=== PATIENT | female | born 1970 | race Caucasian/White ===

== ENCOUNTER 2022-09-14 12:00 | Outpatient (OUT) | payer MEDICAID, SELFPAY ==
[2022-09-14 13:18] LABS: Creatinine Urine Random 31.81 mg/dL (20.00-300.00); Microalbum Creatinine Ratio Ur 40.8 mg/g (0.0-29.9); Microalbumin Urine Random <1.3 mg/dL (<=30.0)
[2022-09-14 13:41] LABS: Albumin Level 4.1 g/dL (3.4-5.0); Anion Gap 12.1; BUN Creatinine Ratio 30.4; Calcium 9.2 mg/dL (8.5-10.1); Chloride 99 mmol/L (98-107); Chol HDL Ratio 2.5; Cholesterol 294 mg/dL (<=200); Estimated GFR (African America >60 (>=60); Estimated GFR (Non-African Ame >60 (>=60); Glucose 251 mg/dL (74-106); HDL Cholesterol 116 mg/dL (40-60); Phosphorus 3.4 mg/dL (2.6-4.7); Potassium 4.1 mmol/L (3.5-5.1); Sodium 137 mmol/L (136-145); Triglycerides 118 mg/dL (<=150); VLDL CHOLESTEROL 23.6 mg/dL
[2022-09-15 12:20] LABS: C-Peptide, Serum <0.1 ng/mL (1.1-4.4)
== END 2022-09-14 12:01 | disposition home or self-care (01) ==
LOC: LAB 12:01
PROVIDERS: PCP Nurse Practitioner Primary Care; Visit Provider Internal Medicine
DX: E10.9 Type 1 diabetes mellitus without complications (principal); Z79.4 Long term (current) use of insulin; E55.9 Vitamin D deficiency, unspecified
CPT/HCPCS: 36415; 80061; 80069; 82043; 82306; 82570; 84681

== ENCOUNTER 2022-09-14 12:10 | Outpatient (OUT) | payer MEDICAID, SELFPAY ==
[2022-09-14 12:27] LABS: Basophils Percent Auto 0.6 % (0.2-2.0); Eosinophils Absolute Auto 0.1 10^3/uL (0.0-0.7); Eosinophils Percent Auto 0.7 % (0.9-7.0); Hematocrit 43.2 % (36.0-48.0); Hemoglobin 14.6 g/dL (12.0-16.0); Immature Granulocytes Abs Auto 0.02 10^3/uL (0.00-0.03); Immature Granulocytes Pct Auto 0.3 % (0.0-0.5); Lymphocytes Absolute Auto 2.6 10^3/uL (1.2-3.8); Mean Corpuscular HGB Conc 33.8 g/dL (29.9-35.2); Mean Corpuscular Hemoglobin 33.5 pg (26.7-34.0); Mean Corpuscular Volume 99.1 fL (81.0-99.0); Mean Platelet Volume 9.6 fL (9.5-13.5); Monocytes Absolute Auto 0.5 10^3/uL (0.3-0.8); Monocytes Percent Auto 7.4 % (1.7-12.0); Neutrophils Absolute Auto 3.7 10^3/uL (1.4-6.5); Platelet Count 272 10^3/uL (150-450); Red Blood Count 4.36 10^6/uL (4.20-5.40); Red Cell Distribution Width 11.7 % (11.0-15.0); White Blood Count 6.9 10^3/uL (4.0-11.0)
[2022-09-14 12:51] LABS: HCG Qualitative Urine* NEGATIVE (NEGATIVE)
[2022-09-14 12:59] LABS: Amphetamine Screen Urine NEGATIVE (NEGATIVE); Barbiturates Screen Urine NEGATIVE (NEGATIVE); Benzodiazepines Screen Urine NEGATIVE (NEGATIVE); Buprenorphine Screen Urine NEGATIVE (NEGATIVE); Cannabinoid Screen Urine POSITIVE (NEGATIVE); Cocaine Screen Urine NEGATIVE (NEGATIVE); Methadone Screen Urine NEGATIVE (NEGATIVE); Methamphetamines Screen Urine NEGATIVE (NEGATIVE); Opiate Screen Urine NEGATIVE (NEGATIVE); Oxycodone Screen Urine NEGATIVE (NEGATIVE); Phencyclidine Screen Urine NEGATIVE (NEGATIVE); Tricyclic Antidepressant Urine NEGATIVE (NEGATIVE)
[2022-09-14 14:18] LABS: Alanine Aminotransferase 26 U/L (14-59); Albumin Globulin Ratio 1.2; Albumin Level 4.2 g/dL (3.4-5.0); Alkaline Phosphatase 168 U/L (46-116); Anion Gap 9.9; Aspartate Amino Transferase 8 U/L (15-37); BUN Creatinine Ratio 28.1; Bilirubin Total 0.3 mg/dL (0.2-1.0); Calcium 8.9 mg/dL (8.5-10.1); Carbon Dioxide 30.2 mmol/L (21.0-32.0); Chloride 99 mmol/L (98-107); Estimated GFR (African America >60 (>=60); Estimated GFR (Non-African Ame >60 (>=60); Globulin 3.4 g/dL; Glucose 261 mg/dL (74-106); Potassium 4.1 mmol/L (3.5-5.1); Sodium 135 mmol/L (136-145); Total Protein 7.6 g/dL (6.4-8.2)
== END 2022-09-14 12:11 | disposition home or self-care (01) ==
LOC: LAB 12:10
PROVIDERS: PCP Nurse Practitioner Primary Care; Visit Provider Nurse Practitioner Primary Care
DX: E10.9 Type 1 diabetes mellitus without complications (principal); Z79.4 Long term (current) use of insulin; E55.9 Vitamin D deficiency, unspecified; F10.10 Alcohol abuse, uncomplicated
CPT/HCPCS: 36415; 80053; 80061; 80069; 80307; 82043; 82306; 82570; 84681; 84703; 85025

== ENCOUNTER 2022-10-16 11:45 | Outpatient (OUT) | payer MEDICAID, SELFPAY ==
[2022-10-16 12:40] LABS: HCG Qualitative Urine* NEGATIVE (NEGATIVE)
== END 2022-10-16 11:46 | disposition home or self-care (01) ==
LOC: LAB 11:49
PROVIDERS: PCP Nurse Practitioner Primary Care; Visit Provider Physician Assistant
DX: F10.10 Alcohol abuse, uncomplicated (principal)
CPT/HCPCS: 84703

== ENCOUNTER 2022-12-08 15:10 | Outpatient (REF) | payer MEDICAID, SELFPAY ==
[2022-12-09 12:09] LABS: Candida species Negative (Negative); Gardnerella vaginalis Positive (Negative); Trichomonas vaginalis Negative (Negative)
[2022-12-10 05:07] LABS: Neisseria gonorrhoeae, NAA Negative (Negative)
[2022-12-10 12:09] LABS: Pap IG (Image Guided) Note (.)
== END 2022-12-08 15:11 | disposition home or self-care (01) ==
LOC: LAB 15:10
PROVIDERS: PCP Nurse Practitioner Primary Care; Visit Provider Nurse Practitioner Primary Care
DX: Z12.4 Encounter for screening for malignant neoplasm of cervix (principal)
CPT/HCPCS: 87491; 87591

== ENCOUNTER 2022-12-25 10:14 | Outpatient (OUT) | payer MEDICAID, SELFPAY ==
--- NOTE | 2022-12-25 10:19 | CT_ITS ---
The [address] [address] Patient Name: KERLINE SANDERS MRN: [id number] date: 1970 Sex: F Assigned Patient Location: CT Current Patient Location: Accession/Order Number: [id number] Exam Date: 12/25/2022 10:23 Report Date: 12/28/2022 07:45 At the request of: CEE BRITTON Procedure: CT lung screening low-dose EXAMINATION: CT lung screening low-dose HISTORY: Nicotine Dependence F17.210 COMPARISON: No relevant comparison available. TECHNIQUE: Axial, Coronal, and Sagittal images were created without the administration of IV contrast material. Dose reduction techniques were achieved by using automated exposure control and/or adjustment of mA and/or kV according to patient size and/or use of iterative reconstruction technique. FINDINGS: LUNGS: A few scattered punctate pulmonary nodules, nonspecific. No significant pulmonary nodule or mass. PLEURA: No mass, effusion, or pneumothorax. VASCULATURE: No abnormality. CADY: No mass or pathologic adenopathy. MEDIASTINUM: No mass or pathologic adenopathy. CARDIAC: No enlargement, pericardial thickening, or significant calcification. AORTA: No aneurysm or dissection. CHEST WALL: No mass or axillary adenopathy BONES: No bone lesion or fracture. 40% anterior wedge compression fracture of L1 likely chronic LIMITED ABDOMEN: Surgical clips from cholecystectomy OTHER: Negative. CT/CT lung screening low-dose IMPRESSION: LUNG SCREENING: Lung-RADS Category 2- Benign Appearance or Behavior. Nodules with a very low likelihood of becoming a clinically active cancer due to size or lack of growth. 2. Continue annual screening with LDCT in 12 months. Electronically authenticated by: ANNA MARIE INGRAM Date: 12/28/2022 07:45
--- NOTE | 2022-12-25 10:20 | MM_ITS ---
Patient: KERLINE SANDERS Exam Date: 12/25/2022 : 1970 Gender:F Ordering : CEE BRITTON Admission #: [id number] Family : Order #: [id number] CLICK HERE TO VIEW EXAM RADIOLOGY REPORT PROCEDURE: MM TOMOSYNTHESIS SCREENING BI COMPARISON: None. INDICATIONS: Screening Calculator Name NCI Breast Cancer Risk Assessment Tool 5 Year Breast Cancer Risk 1.20% Lifetime Breast Cancer Risk 10.80% Personal Breast Cancer No Personal Ovarian Cancer No Treatments None Family Cancers Grandmother-maternal with breast cancer at age 71. LOCATION: [facility] BREAST COMPOSITION: Scattered areas fibroglandular density. FINDINGS: DIAGNOSTIC CATEGORY 0--INCOMPLETE: NEED ADDITIONAL IMAGING EVALUATION. Scattered benign-appearing lymph nodes are present. RIGHT BREAST: 3 focal well-circumscribed nodules adjacent to each other in the upper-outer quadrant of the right mid breast measuring 4-5 mm in size best visualized on tomographic images, spot compression and ultrasound follow-up is recommended. LEFT BREAST: No significant suspicious finding. RECOMMENDATIONS: ADDITIONAL MAMMOGRAPHIC VIEWS REQUIRED: RIGHT BREAST - spot compression views ULTRASOUND: RIGHT BREAST PLEASE NOTE: A NORMAL MAMMOGRAM DOES NOT EXCLUDE THE POSSIBILITY OF BREAST CANCER. A CLINICALLY SUSPICIOUS PALPABLE LUMP SHOULD BE BIOPSIED. Dictated by: Skyler Petty MD on 12/28/2022 at 08:50 Approved by: Skyler Petty MD on 12/28/2022 at 08:53
== END 2022-12-25 10:15 | disposition home or self-care (01) ==
LOC: CT 10:14
PROVIDERS: PCP Nurse Practitioner Primary Care; Visit Provider Nurse Practitioner Primary Care
DX: Z12.31 Encounter for screening mammogram for malignant neoplasm of breast (principal); F17.210 Nicotine dependence, cigarettes, uncomplicated; F10.10 Alcohol abuse, uncomplicated; Z80.3 Family history of malignant neoplasm of breast; N63.11 Unspecified lump in the right breast, upper outer quadrant
CPT/HCPCS: 71271; 77063; 77067

== ENCOUNTER 2022-12-29 09:43 | Outpatient (OUT) | payer MEDICAID, SELFPAY ==
[2022-12-29 09:56] LABS: Basophils Absolute Auto 0.1 10^3/uL (0.0-0.1); Basophils Percent Auto 0.9 % (0.2-2.0); Eosinophils Absolute Auto 0.1 10^3/uL (0.0-0.7); Eosinophils Percent Auto 1.6 % (0.9-7.0); Hematocrit 41.4 % (36.0-48.0); Hemoglobin 13.8 g/dL (12.0-16.0); Immature Granulocytes Abs Auto 0.01 10^3/uL (0.00-0.03); Immature Granulocytes Pct Auto 0.2 % (0.0-0.5); Lymphocytes Absolute Auto 3.2 10^3/uL (1.2-3.8); Lymphocytes Percent Auto 55.9 % (20.5-60.0); Mean Corpuscular HGB Conc 33.3 g/dL (29.9-35.2); Mean Corpuscular Hemoglobin 33.6 pg (26.7-34.0); Mean Corpuscular Volume 100.7 fL (81.0-99.0); Mean Platelet Volume 10.1 fL (9.5-13.5); Monocytes Absolute Auto 0.5 10^3/uL (0.3-0.8); Neutrophils Absolute Auto 1.9 10^3/uL (1.4-6.5); Neutrophils Percent Auto 33.4 % (43.0-75.0); Platelet Count 243 10^3/uL (150-450); Red Blood Count 4.11 10^6/uL (4.20-5.40); Red Cell Distribution Width 11.6 % (11.0-15.0); White Blood Count 5.6 10^3/uL (4.0-11.0)
[2022-12-29 10:15] LABS: Estimated Average Glucose 174 mg/dL; Glycohemoglobin A1C 7.7 % (4.5-6.2)
[2022-12-29 15:05] LABS: Alanine Aminotransferase 32 U/L (14-59); Albumin Globulin Ratio 1.2; Albumin Level 3.5 g/dL (3.4-5.0); Alkaline Phosphatase 98 U/L (46-116); Anion Gap 12.7; Aspartate Amino Transferase 21 U/L (15-37); BUN Creatinine Ratio 20.3; Bilirubin Total 0.3 mg/dL (0.2-1.0); Calcium 8.7 mg/dL (8.5-10.1); Carbon Dioxide 28.8 mmol/L (21.0-32.0); Chloride 103 mmol/L (98-107); Chol HDL Ratio 2.5; Cholesterol 200 mg/dL (<=200); Estimated GFR (African America >60 (>=60); Estimated GFR (Non-African Ame >60 (>=60); Globulin 2.9 g/dL; Glucose 199 mg/dL (74-106); HDL Cholesterol 79 mg/dL (40-60); Potassium 4.5 mmol/L (3.5-5.1); Sodium 140 mmol/L (136-145); Total Protein 6.4 g/dL (6.4-8.2); Triglycerides 106 mg/dL (<=150); VLDL CHOLESTEROL 21.2 mg/dL
[2022-12-29 16:44] LABS: TSH W/ REFLEX FT4 3.312
[2022-12-30 06:11] LABS: HCV Ab Non Reactive (Non Reactive)
== END 2022-12-29 09:44 | disposition home or self-care (01) ==
LOC: LAB 09:43
PROVIDERS: PCP Nurse Practitioner Primary Care; Visit Provider Nurse Practitioner Primary Care
DX: Z00.00 Encounter for general adult medical examination without abnormal findings (principal); Z11.59 Encounter for screening for other viral diseases; Z13.6 Encounter for screening for cardiovascular disorders; Z13.29 Encounter for screening for other suspected endocrine disorder
CPT/HCPCS: 36415; 80053; 80061; 83036; 85025; 86803

== ENCOUNTER 2022-12-30 13:21 | Outpatient (OUT) | payer MEDICAID, SELFPAY ==
--- NOTE | 2022-12-30 13:26 | MM_ITS ---
Patient Name KERLINE SANDERS MR# Age Sex Date Time [id number] 52 F 12/30/2022 13:27 At the Request Of CEE BRITTON RADIOLOGY REPORT PROCEDURE: MM DIAGNOSTIC MAMMO UNILAT RT, 12/30/2022, 13:27 US BREAST RT LIMITED, 12/30/2022, 13:52 COMPARISON: MM TOMOSYNTHESIS SCREENING BI, 12/25/2022. INDICATIONS: Abnormal Mammogram Of Right Breast R92.8 Calculator Name NCI Breast Cancer Risk Assessment Tool 5 Year Breast Cancer Risk 1.20% Lifetime Breast Cancer Risk 10.80% Personal Breast Cancer No Personal Ovarian Cancer No Treatments None Family Cancers Grandmother-maternal with breast cancer at age 71. LOCATION: [facility] BREAST COMPOSITION: Scattered areas fibroglandular density. FINDINGS: DIAGNOSTIC CATEGORY 2--BENIGN FINDING: RIGHT BREAST: Spot magnification views demonstrate adjacent partially circumscribed masses versus lymph nodes within upper-outer quadrant. Ultrasound evaluation demonstrates adjacent benign-appearing lymph nodes. Annual screening mammography is recommended. RECOMMENDATIONS: ROUTINE MAMMOGRAM AND CLINICAL EVALUATION IN 12 MONTHS. PLEASE NOTE: A NORMAL MAMMOGRAM DOES NOT EXCLUDE THE POSSIBILITY OF BREAST CANCER. A CLINICALLY SUSPICIOUS PALPABLE LUMP SHOULD BE BIOPSIED. Dictated by: Slim Saldaña M.D. on 12/30/2022 at 14:15 Approved by: Slim Saldaña M.D. on 12/30/2022 at 14:20
== END 2022-12-30 13:22 | disposition home or self-care (01) ==
LOC: MAMMO 13:21
PROVIDERS: PCP Nurse Practitioner Primary Care; Visit Provider Nurse Practitioner Primary Care
DX: R92.8 Other abnormal and inconclusive findings on diagnostic imaging of breast (principal); F10.10 Alcohol abuse, uncomplicated; Z80.3 Family history of malignant neoplasm of breast
CPT/HCPCS: 76642; 77065

== ENCOUNTER 2023-02-03 07:40 | Outpatient (OUT) | payer MEDICAID, SELFPAY | END 2023-02-03 07:41 | disposition home or self-care (01) | LOC: PST 07:40 | PROVIDERS: PCP Nurse Practitioner Primary Care; Visit Provider Surgery | DX: Z01.818 Encounter for other preprocedural examination (principal); Z12.11 Encounter for screening for malignant neoplasm of colon ==

== ENCOUNTER 2023-02-10 07:10 | Day surgery (SDC) | payer MEDICAID, SELFPAY ==
--- NOTE | 2023-02-10 | OP_ITS ---
OPERATION DATE: 02/10/2023 PREOPERATIVE DIAGNOSIS: Colorectal screening. POSTOPERATIVE DIAGNOSIS: Normal colonoscopy to cecum. PROCEDURE: Colonoscopy to cecum. SURGEON: Wei Reina M.D. ANESTHESIA: Monitored anesthesia care. ESTIMATED BLOOD LOSS: Zero. INDICATIONS AND CONSENT: Patient is a 52-year-old female presents for colorectal screening. Indications, risks, benefits, alternatives of proceeding with colonoscopy were explained extensively to the patient, including the risks of bleeding, colon perforation or anesthetic complications. All of her questions were answered. Informed consent was obtained. PROCEDURE: Patient brought to the operating room, placed in the left lateral decubitus position. Monitored anesthesia care was provided. Rectal exam was performed which shows no masses or blood. The scope was inserted into the anal canal. Under direct visualization was advanced. It was advanced to the cecum where cecal markings were clearly identified. There was noted to be a good prep. Upon withdrawal of the scope, mucosal surfaces were carefully examined. There were no mass lesions or polyps. No inflammatory changes or ulcerations. No significant diverticulosis. Scope was retroflexed in the anal canal. There was no significant hemorrhoidal disease. The scope was then withdrawn. Patient tolerated procedure well, was sent to recovery room in good condition.f/u screening in 10 years CC: JANET Rain
--- OUTSIDE RECORDS SUMMARY | 2023-02-10 07:17 | XMS_ITS | CCD ---
Author Name Unknown Address [address] [place] [address] Organization [facility] Care Team Providers Care Clinical Exercise Specialist Name Role Phone NONE, XXXX Primary Care Physician Unavailab Odilia Ryan Unavailable Odilia RUBIO Attending Unavailable Odilia RUBIO Admitting Unavailable Gregorio Dean Attending Unavailable SHAMMO, DOUGLAS Admitting Unavailable SHAMMO, DOUGLAS Attending Unavailable SHAMMO, DOUGLAS Primary Care Unavailable SHAMMO, DOUGLAS Consulting Unavailable RICHIE, AHMAD Admitting Unavailable RICHIE, AHMAD Attending Unavailable SHAMMO, DOUGLAS Primary Care Unavailable RICHIE, AHMAD Consulting Unavailable SHAMMO, DOUGLAS Admitting Unavailable SHAMMO, DOUGLAS Attending Unavailable SHAMMO, DOUGLAS Primary Care Unavailable PAY, DR MOELLER Admitting Unavailable PAY, DR MOELLER Attending Unavailable REQUEST, DR MENDOZA LISTED Primary Care Unavaila ble PAY, DR MOELLER Consulting Unavailable SYDNIE SHANNON Consulting Unavailable SHAMMO, DOUGLAS Primary Care Unavailable HAY, DR NARANJO Admitting Unavailable HAY, DR NARANJO Attending Unavailable KATIE, DR NARANJO Consulting Unavailable MARIA TERESA, DR TONEY Vinson Admitting Unavailsupa MOREL, DR TONEY Vinson Attending Unavailsupa VALDEZ, DR LATANYA Spaulding Consulting Unavailable JUVENCIO, DR MENDOZA LISTED Primary Care Unavaila ble MARIA TERESA, DR TONEY Vinson Consulting UnavailSYDNIE Urbano Consulting Unavailable MAGNOLIA DUMONT Consulting Unavailable SHAMMO, DOUGLAS DIAMOND Primary Care Physician DO Papito Carrera Attending Unavailable SHAMMO, DOUGLAS Primary Care Unavailable DO Papito Carrera Admitting Unavailable SHAMMO, DOUGLAS Primary Care Unavailable Wei RAMOS Attending Unavailable SHAMMO, DOUGLAS Primary Care Unavailable SHAMMO, DOUGLAS Referring Unavailable Allergies Allergy Classification Reported Allergen(s) Allergy Type Date of Onset Reaction(s) Facility (4 sources) Acetaminophen / HYDROcodone; Translations: [acetaminophen-hy drocodone] Drug Allergy Itching of skin (finding), Eruption of skin (disorder) [facility] (4 sources) Aspirin; Translations: [aspirin] Drug Allergy Unknown (qualifier value), Eruption of skin (disorder) [facility] (4 sources) Penicillin; Translations: [penicillin] Drug Allergy Eruption of skin (disorder) [facility] (1 source) Acetaminophen / HYDROcodone Drug Allergy 07-11-19 15 [facility] (1 source) Aspirin Drug Allergy 07-11-19 15 [facility] (1 source) Penicillins Drug allergy (disorder) 07-11-19 15 [facility] (2 sources) HMG-CoA reductase inhibitor; Translations: [statins] Drug intolerance Nausea and vomiting (disorder) [facility] Medications Current Medications Medication Drug Class(es) Dates Sig (Normalized) Sig (Original) acetaminophen 325 mg / oxyCODONE hydrochloride 5 mg oral tablet (1 source) Opioid Agonist Start: 11-07-2015 Percocet 325 mg-5 mg Tab See Instructions, as needed for pain, 40 tab(s), Refill(s) 0, 1-2 tab(s) Oral q4hr, [facility] WHITTL[facility]Y PETRAE Start Date: 11/07/15 Status: Ordered docusate sodium 100 mg oral capsule (1 source) Start: 11-07-2015 take 1 capsule by mouth twice daily as needed for constipation Colace 100 mg Cap 100 mg = 1 cap(s), Oral, BID, PRN for constipation, # 20 cap(s), Refills(s) 0, Pharmacy: [facility] ROS[facility] MARIA KAT Start Date: 11/07/15 Status: Ordered insulin aspart, human 100 unt/ml injectable solution (2 sources) Insulin Analog Start: 01-19-2023 NovoLOG 100 units/mL injectable solution as directed, Refills(s) 0 Start Date: 01/19/23 Status: Ordered Start: 02-27-2015 inject 1 [IU] by sub cutaneous injection once NovoLog SubCutaneous, TIDAC, 1 unit for every 15 carbs, Refills(s) 0, Blood glucose Start Date: 02/27/15 Status: Ordered insulin glargine 100 unt/ml injectable solution (2 sources) Insulin Analog Start: 01-19-2023 inject 12 [IU] by subcutaneous injection once daily Lantus 100 units/mL Injection-Insulin 12 unit(s), SubCutaneous, Daily, Refills(s) 0 Start Date: 01/19/23 Status: Ordered Start: 05-16-2011 inject 12 [IU] by scruggs bcutaneous injection once daily Lantus 12 unit(s), SubCutaneous, Daily, at noon, Blood glucose Start Date: 05/16/11 Status: Ordered Problems Active Problems Problem Classification Problem Date Documented Date Episodic/Chronic Alcohol-related disorders (1 source) Alcohol abuse 01-19-2023 Chronic Diabetes mellitus with complications (1 source) Type 1 diabetes mellitus with hyperglycemia; Translations: [TYPE 1 DM W/HYPERGLYCEMIA] Onset: 10-31-2021 Chronic Diabetes mellitus without complication (4 sources) Diabetes mellitus; Translations: [Type 1 diabetes mellitus without complications] Onset: 09-04-2021 10-24-2015 Chronic Disorders of lipid metabolism (1 source) Mixed hyperlipidemia 01-19-2023 Chronic Endometriosis (2 sources) Endometriosis of cervix; Translations: [Endometriosis (clinical)] 10-24-2015 Chronic Essential hypertension (1 source) Essential hypertension 01-19-2023 Chronic Immunizations and screening for infectious disease (1 source) Encounter for screening for other viral diseases; Translations: [ENC SCREENING FOR OTH VIRAL DZ] Onset: 12-04-2021 Episodic Inflammation; infection of eye (except that caused by tuberculosis or sexually transmitteddisease) (2 sources) Unspecified blepharitis right upper eyelid; Translations: [Unspecified conjunctivitis] Onset: 02-24-2022 Episodic Nutritional deficiencies (1 source) Vitamin D deficiency, unspecified; Translations: [VITAMIN D DEFICIENCY UNSPECIFIED] Onset: 12-04-2021 Chronic Other aftercare (1 source) 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; 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] Onset: 02-24-2022 Episodic Other aftercare (1 source) Other jail (current) drug therapy; Translations: [OTH GRAVURE PRESS SET UP OPERATOR CURRENT DRUG THERAPY] Onset: 02-24-2022 Episodic Other eye disorders (3 sources) Ocular pain, right eye; Translations: [OCULAR PAIN RIGHT EYE] Onset: 02-21-2022 Episodic Other screening for suspected conditions (not mental disorders or infectious disease) (2 sources) Encounter for screening for other suspected endocrine disorder; Translations: [Screening for malignant neoplasm of colon done] Onset: 12-04-2021 Episodic Substance-related disorders (3 sources) Smoker; Translations: [Nicotine dependence, cigarettes, uncomplicated] Onset: 10-31-2021 02-27-2015 Chronic Comment on above: Added secondary to d ocumentation in Social History. Outside Source Comme nt: Comment on above: Added secondary to documentation in Social History. Unclassified (1 source) Body mass index 20-24 - normal 01-27-2023 Unclassified (1 source) Patient encounter status 01-27-2023 Past or Other Problems Problem Classification Problem Date Documented Da te Episodic/Chronic Abdominal pain (4 sources) Unspecified abdominal pain; Translations: [UNSPECIFIED ABDOMINAL PAIN] Onset: 09-04-2021 Episodic Fever of unknown origin (1 source) Fever, unspecified; Translations: [FEVER UNSPECIFIED] Onset: 10-31-2021 Episodic Residual codes; unclassified (1 source) Acquired absence of both cervix and uterus; Translations: [ACQUIRED ABSENCE BOTH CERVIX AND UTERUS] Onset: 10-31-2021 Episodic Urinary tract infections (2 sources) Cystitis, unspecified without hematuria; Translations: [Tubulo-interstitia l nephritis, not specified as acute or chronic] Onset: 09-04-2021 Episodic Results Test Name Value Interpretation Reference Range Facil ity Consent for Procedure/Surger yon 01-29-2023 Consent for Procedure/Surgery [id number]#1.00TIFF [facility] Facesheeton 01-28-2023 Facesheet [id number]#1.00TI FF [facility] Ambulatory Visit Summaryon 1 03-30-2022 Ambulatory Visit Summary KERLINE SANDERS :1970 Visit Date:01/27/2023 Ambulatory Visit Instructions Your Diagnosis Screening for malignant neoplasm of colon Your Care Team Attending Physician - RICHARD BUCKLEY, Wei Spaulding Primary Care Physician - DOUGLAS BRITTON CNP Referring Physician - DOUGLAS BRITTON CNP This Is Your Medications List Contact prescribing physician if questions or concerns insulin aspart (NovoLOG 100 units/mL injectable solution) insulin glargine (Lantus 100 units/mL Injection-Insulin) Procedures Performed Colonoscopy (2006), Abdominal hysterectomy, Carpal tunnel release, section, Cholecystectomy, Colonoscopy, Colonoscopy, Laparoscopy. Discharge Vitals Heart Rate (Peripheral) 70 Respiratory Rate 16 Blood Pressure 116/70 Height 162.5 cm Height 64 in Weight 55.6 kg Weight 122.32 lb BMI 21.06 Medications What How Much When Instructions Unchanged insulin aspart (NovoLOG 100 units/ mL injectable solution) as directed Contact prescribing physician if questions or concerns Unchanged insulin glargine (Lantus 100 units/ mL Injection-Insulin) 12 Units Subcutaneous Every day Contact prescribing physician if questions or concerns Medications and Immunizations Administered Not Given influenza virus vaccine, inactivated, Patient Refuses influenza virus vaccine, inactivated, Patient Refuses Allergies Vicodin (Rash) aspirin (Rash) penicillin (Rash) statins (Nausea and vomiting) Problems Ongoing - Any problem that you are currently receiving treatment for. Alcohol abuse BMI 21.0-21.9, adult Diabetes mellitus Endometriosis Essential hypertension Mixed hyperlipidemia Screening for malignant neoplasm of colon Smoker Patient Survey You may receive a survey via text or e-mail asking about your office visit. Please share your experience with us by completing your survey. We appreciate your feedback and thank you for choosing us for your care. Normal [facility] Insurance Correspondenceon 1 03-30-2022 Insurance Correspondence [id number] Normal [facility] Physician Orderon 01-05-2023 Physician Order [id number] Normal [facility] Physician Referralon 023 Physician Referral [id number] [facility] C-PEPTIDE, SERUMon 2 C-Peptide, Serum <0.1 Critically low 1.1-4.4 [facility] Comment on above: Result Comment: C-Pe ptide reference interval is for fasting patients. Performed By: #### E RUSSELL FINNRO #### [facility] [address] [place] [address] Dr. Dariana Hall HEPATITIS C AB CASCADE TO QU ANT PCR GENOon 12-03-2021 HCV AB <0.1 Normal 0.0-0.9 [facility] Comment on above: Performed By: #### H EPCASC #### [facility] [address] [place] [address] Dr. Dariana Hall Interpretation: Comment Normal [facility] Comment on above: Result Comment: Nega tive Not infected with HCV, unless recent infection is suspected or other evidence exists to indicate HCV infection. Performed By: #### H EPCASC #### [facility] [address] [place] [address] Dr. Dariana Hall CBC AUTO DIFFon 12-02-2021 BASO # 0.0 103/ul Normal 0.0-0.1 [facility] Comment on above: Performed By: #### C BC #### [facility] [address] [place] [address] Dr. Dariana Hall Basophils/100 WBC (Bld) 0.4 % Normal 0.2-2.0 [facility] Comment on above: Performed By: #### C BC #### [facility] [address] [place] [address] Dr. Dariana Hall EO # 0.1 103/ul Normal 0.0-0.7 [facility] Comment on above: Performed By: #### C BC #### [facility] [address] [place] [address] Dr. Dariana Hall Eosinophils/100 WBC (Bld) 1.0 % Normal 0.9-7.0 [facility] Comment on above: Performed By: #### C BC #### [facility] [address] [place] [address] Dr. Dariana Hall Erythrocyte distribution wid th (RBC) [Ratio] 12.6 % Normal 11.0-15.0 [facility] Comment on above: Performed By: #### C BC #### [facility] [address] [address] [address] Dariana Hall Hematocrit (Bld) [Volume fraction] 39.8 % Normal 3 6.0-48.0 [facility] Comment on above: Performed By: #### C BC #### [facility] [address] [address] [address] Dariana Hall Hemoglobin (Bld) [Mass/Vol] 13.0 g/dL Normal 12.0-16. 0 [facility] Comment on above: Performed By: #### C BC #### [facility] [address] [place] [address] Dr. Dariana Hall IG # 0.02 10e3/ul Normal 0.00-0.03 [facility] Comment on above: Performed By: #### C BC #### [facility] [address] [place] [address] Dr. Dariana Hall IG % 0.3 % Normal 0.0-0.5 [facility] Comment on above: Performed By: #### C BC #### [facility] [address] [place] [address] Dr. Dariana Hall LYMPH # 2.8 103/ul Normal 1.2-3.8 [facility] Comment on above: Performed By: #### C BC #### [facility] [address] [place] [address] Dr. aDriana Hall Lymphocytes/100 WBC (Bld) 35.8 % Normal 20.5-60.0 [facility] Comment on above: Performed By: #### C BC #### [facility] [address] [place] [address] Dr. Dariana Hall MANUAL DIFF REQ NO Normal [facility] Comment on above: Performed By: #### C BC #### [facility] [address] [place] [address] Dr. Dariana Hall MCH (RBC) [Entitic mass] 32.7 pg Normal 26.7-34.0 [facility] Comment on above: Performed By: #### C BC #### [facility] [address] [place] [address] Dr. Dariana Hall MCHC (RBC) [Mass/Vol] 32.7 g/dL Normal 29.9-35.2 [facility] Comment on above: Performed By: #### C BC #### [facility] [address] [place] [address] Dr. Dariana Hall MCV (RBC) [Entitic vol] 100.3 fL Critically high 81.0-99 .0 [facility] Comment on above: Performed By: #### C BC #### [facility] [address] [place] [address] Dr. Dariana Hall MONO # 0.5 103/ul Normal 0.3-0.8 [facility] Comment on above: Performed By: #### C BC #### [facility] [address] [place] [address] Dr. Dariana Hall Monocytes/100 WBC (Bld) 6.0 % Normal 1.7-12.0 [facility] Comment on above: Performed By: #### C BC #### [facility] [address] [place] [address] Dr. Dariana Hall NEUT # 4.4 103/ul Normal 1.4-6.5 [facility] Comment on above: Performed By: #### C BC #### [facility] [address] [place] [address] Dr. Dariana Hall Neutrophils/100 WBC (Bld) 56.5 % Normal 43.0-75.0 [facility] Comment on above: Performed By: #### C BC #### [facility] [address] [place] [address] Dr. Dariana Hall Platelet mean volume (Bld) [Entitic vol] 9.9 fL Normal 9.5-13.5 [facility] Comment on above: Performed By: #### C BC #### [facility] [address] [place] [address] Dr. Dariana Hall PLT 266 103/ul Normal 150-450 [facility] Comment on above: Performed By: #### C BC #### [facility] [address] [address] [address] Dariana Hall RBC 3.97 106/ul Critically low 4.20-5.40 [facility] Comment on above: Performed By: #### C BC #### [facility] [address] [address] [address] Dariana Hall WBC 7.8 103/ul Normal 4.0-11.0 [facility] Comment on above: Performed By: #### C BC #### [facility] [address] [address] [address] Dariana Hall LIPID PROFILEon 12-02-2021 CHOL-HDL RATIO NORM SEE BELOW Normal [facility] Comment on above: Result Comment: 3.3 - 4.4 LOW RISK 4.4 - 7.1 AVERAGE RISK 7.1 - 11.0 MODERATE RISK >11.0 HIGH RISK Performed By: #### P HOS, LIPID #### [facility] [address] [address] [address] Dariana Hall Cholesterol [Mass/Vol] 208 mg/dL Critically high <=200 [facility] Comment on above: Performed By: #### P HOS, LIPID #### [facility] [address] [address] [address] Dariana Hall Cholesterol in HDL [Mass/Vol] 107 mg/dL Critically high 4 0-60 [facility] Comment on above: Performed By: #### P HOS, LIPID #### [facility] [address] [address] [address] Dariana Hall Cholesterol in LDL [Mass/Vol] 89.2 mg/dL Normal [facility] Comment on above: Performed By: #### P HOS, LIPID #### [facility] [address] [address] [address] Dariana Hall Cholesterol.total/Cholestero l in HDL [Mass ratio] 1.9 {ratio} Normal [facility] Comment on above: Performed By: #### P HOS, LIPID #### [facility] [address] [address] [address] Dariana Hall HDL NORMAL > or = 60 mg/dl - LO W CARDIOVASCULAR RISK <40 mg/dl - HIGH CARDIOVASCULAR RISK Normal [facility] Comment on above: Performed By: #### P HOS, LIPID #### [facility] [address] [address] [address] Dariana Hall LDL CALC NORMAL SEE BELOW Normal [facility] Comment on above: Result Comment: <100 mg/dl OPTIMAL 100 - 129 mg/dl NEAR OR ABOVE OPTIMAL 130 - 159 mg/dl BORDERLINE HIGH 160 - 189 mg/dl HIGH >190 mg/dl VERY HIGH Performed By: #### P HOS, LIPID #### [facility] [address] [address] [address] Dariana Hall Triglyceride [Mass/Vol] 59 mg/dL Normal <=150 [facility] Comment on above: Performed By: #### P HOS, LIPID #### [facility] [address] [address] [address] Dariana Hall VLDL CALC 11.8 mg/dL Normal [facility] Comment on above: Performed By: #### P HOS, LIPID #### [facility] [address] [address] [address] Dariana Hall MICROALB CREAT RATIO RANDOMo n 12-02-2021 mALB <1.3 Normal <=30.0 [facility] Comment on above: Performed By: #### M CRR #### [facility] [address] [address] [address] Dariana Hall MALB CR RATIO 9.3 mg/g Normal 0.0-29.9 [facility] Comment on above: Performed By: #### M CRR #### [facility] [address] [address] [address] Dariana Hall MALB CR RATIO RANGE SEE BELOW Normal [facility] Comment on above: Result Comment: NO M ICROALBUMINURIA 0-29 MG/G CLINICAL MICROALBUMINURIA 30-300 MG/G MACROALBUMINURIA >300 MG/G Performed By: #### M CRR #### [facility] [address] [address] [address] Dariana Hall URINE CREAT 139.30 mg/dL Normal 20.00-300.00 [facility] Comment on above: Performed By: #### M CRR #### [facility] [address] [place] [address] Dr. Dariana Hall PHOSPHORUSon 12-02-2021 Phosphate [Mass/Vol] 4.1 mg/dL Normal 2.6-4.7 [facility] Comment on above: Performed By: #### P HOS, LIPID #### [facility] [address] [place] [address] Dr. Dariana Hall PROF 14(COMP METB)on 022 Albumin [Mass/Vol] 3.6 g/dL Normal 3.4-5.0 [facility] Comment on above: Performed By: #### Bassem FINN UMICRO #### [facility] [address] [place] [address] Dr. Dariana Hall Albumin/Globulin [Mass ratio] 1.1 {ratio} Normal [facility] Comment on above: Performed By: #### Bassem FINN UMICRO #### [facility] [address] [place] [address] Dr. Dariana Hall ALP [Catalytic activity/Vol] 119 U/L Critically high 46 -116 [facility] Comment on above: Performed By: #### Bassem FINN UMICRO #### [facility] [address] [place] [address] Dr. Dariana Hall ALT [Catalytic activity/Vol] 23 U/L Normal 14-59 [facility] Comment on above: Performed By: #### Bassem FINN UMICRO #### [facility] [address] [place] [address] Dr. Dariana Hall Anion gap [Moles/Vol] 12.9 mmol/L Normal [facility] Comment on above: Performed By: #### Bassem FINN, UMICRO #### [facility] [address] [place] [address] Dr. Dariana Hall AST [Catalytic activity/Vol] 14 U/L Critically low 15- 37 [facility] Comment on above: Performed By: #### E RUR, UMICRO #### [facility] [address] [address] [address] Dariana Hall Bilirubin [Mass/Vol] 0.6 mg/dL Normal 0.2-1.0 [facility] Comment on above: Performed By: #### E RUR, UMICRO #### [facility] [address] [place] [address] Dr. Dariana Hall Calcium [Mass/Vol] 8.7 mg/dL Normal 8.5-10.1 [facility] Comment on above: Performed By: #### E RUR, UMICRO #### [facility] [address] [place] [address] Dr. Dariana Hall Chloride [Moles/Vol] 104 mmol/L Normal 98-107 [facility] Comment on above: Performed By: #### E YAIRR, UMICRO #### [facility] [address] [place] [address] Dr. Dariana Hall CO2 [Moles/Vol] 30.2 mmol/L Normal 21.0-32.0 [facility] Comment on above: Performed By: #### Bassem MAZARIEGOSR, UMICRO #### [facility] [address] [place] [address] Dr. Dariana Hall Creatinine [Mass/Vol] 0.53 mg/dL Critically low 0.55-1.02 [facility] Comment on above: Performed By: #### Bassem MAZARIEGOSR, UMICRO #### [facility] [address] [place] [address] Dr. Dariana Hall EGFR-AF THAI >60 Normal >=60 [facility] Comment on above: Performed By: #### E RUR, UMICRO #### [facility] [address] [place] [address] Dr. Dariana Hall EGFR-NON AF THAI >60 Normal >=60 [facility] Comment on above: Performed By: #### E RUR, UMICRO #### [facility] [address] [place] [address] Dr. Dariana Hall Globulin (S) [Mass/Vol] 3.2 g/dL Normal [facility] Comment on above: Performed By: #### MEY WALTERS #### [facility] [address] [place] [address] Dr. Dariana Hall Glucose [Mass/Vol] 151 mg/dL Critically high 74-106 [facility] Comment on above: Performed By: #### MEY WALTERS #### [facility] [address] [place] [address] Dr. Dariana Hall Potassium [Moles/Vol] 4.1 mmol/L Normal 3.5-5.1 [facility] Comment on above: Performed By: #### RUSSELL WALTERSRO #### [facility] [address] [place] [address] Dr. Dariana Hall Protein [Mass/Vol] 6.8 g/dL Normal 6.4-8.2 [facility] Comment on above: Performed By: #### MEY WALTERS #### [facility] [address] [place] [address] Dr. Dariana Hall Sodium [Moles/Vol] 143 mmol/L Normal 136-145 [facility] Comment on above: Performed By: #### MEY WALTERS #### [facility] [address] [place] [address] Dr. Dariana Hall Urea nitrogen [Mass/Vol] 10.0 mg/dL Normal 7.0-18.0 [facility] Comment on above: Performed By: #### RUSSELL WALTERSRO #### [facility] [address] [place] [address] Dr. Dariana Hall Urea nitrogen/Creatinine [Mass ratio] 18.9 mg/mg Normal [facility] Comment on above: Performed By: #### MEY WALTERS #### [facility] [address] [place] [address] Dr. Dariana Hall TSHon 12-02-2021 TSH 2.284 uIU/mL Normal 0.358-3.740 [facility] Comment on above: Performed By: #### RUSSELL WALTERSRO #### [facility] [address] [place] [address] Dr. Dariana Hall VITAMIN D 25 OHon 12-02-2021 VIT D 25-OH 78.8 ng/mL Normal [facility] Comment on above: Performed By: #### MEY WALTERS #### [facility] [address] [place] [address] Dr. Dariana Hall VIT D RANGES SEE BELOW Normal [facility] Comment on above: Result Comment: <20 ng/mL Vit D deficient 20 - <30 ng/mL Vit D insufficient 30 - 100 ng/mL Vit D sufficient >100 ng/mL Potential Toxicity Performed By: #### MEY WALTERS #### [facility] [address] [place] [address] Dr. Dariana Hall CULTURE URINEon 10-31-2021 CULTURE URINE Isolate 1 Escherichia coli >100,000 cfu/mL of ORGANISM 1 Escherichia coli ANTIBIOTIC M.I.C RX STATUS Ampicillin >=32 R F Ampicillin/Sulbactam >=32 R F Piperacillin/Tazobactam <=4 S F Cefazolin 16 I F Ceftazidime <=1 S F Ceftriaxone <=1 S F Ertapenem <=0.5 S F Imipenem <=0.25 S F Amikacin <=2 S F Gentamicin <=1 S F Tobramycin <=1 S F Ciprofloxacin <=0.25 S F Levofloxacin <=0.12 S F Nitrofurantoin <=16 S F Trimethoprim/Sulfamethoxazole >=320 R F Normal [facility] Comment on above: Performed By: #### MEY WALTERS #### [facility] [address] [place] [address] Dr. Dariana Hall ER URINE PROFILEon 2 Bilirubin Ql (U) Negative Normal NEGATIVE [facility] Comment on above: Performed By: #### MEY WALTERS #### [facility] [address] [place] [address] Dr. Dariana Hall Clarity (U) CLEAR Normal CLEAR [facility] Comment on above: Performed By: #### MEY WALTERS #### [facility] [address] [address] [address] Dariana Hall Color (U) LT. YELLOW Normal YELLOW [facility] Comment on above: Performed By: #### RUSSELL WALTERSRO #### [facility] [address] [place] [address] Dr. Dariana GARCIA A micrscopic examina tion will be performed if indicated. Normal [facility] Comment on above: Performed By: #### RUSSELL WALTERSRO #### [facility] [address] [place] [address] Dr. Dariana Hall Glucose Ql (U) 500 mg/dl Abnormal NEGATIVE [facility] Comment on above: Performed By: #### RUSSELL WALTERSRO #### [facility] [address] [place] [address] Dr. Dariana Hall Hemoglobin Ql (U) SMALL Abnormal NEGATIVE [facility] Comment on above: Performed By: #### RUSSELL WALTERSRO #### [facility] [address] [place] [address] Dr. Dariana Hall Ketones Ql (U) 40 mg/dl Abnormal NEGATIVE [facility] Comment on above: Performed By: #### RUSSELL WALTERSRO #### [facility] [address] [place] [address] Dr. Dariana Hall LEUKOCYTES SMALL Abnormal NEGATIVE [facility] Comment on above: Performed By: #### RUSSELL WALTERSRO #### [facility] [address] [place] [address] Dr. Dariana Hall Nitrite Ql (U) Positive Abnormal NEGATIVE [facility] Comment on above: Performed By: #### Bassem FINN UMICRO #### [facility] [address] [place] [address] Dr. Dariana Hall pH (U) 6.0 [pH] Normal 5-9 [facility] Comment on above: Performed By: #### UNIQUE WALTERSICRO #### [facility] [address] [place] [address] Dr. Dariana Hall SPEC GRAVITY 1.015 Normal 1.005-<=1.025 [facility] Comment on above: Performed By: #### E RUR UMICRO #### [facility] [address] [place] [address] Dr. Dariana Hall UA PROTEIN TRACE Normal NEGATIVE/ TRACE [facility] Comment on above: Performed By: #### E RUR UMICRO #### [facility] [address] [place] [address] Dr. Dariana Hall UR MICRO IND INDICATED Normal [facility] Comment on above: Performed By: #### E RUR UMICRO #### [facility] [address] [place] [address] Dr. Dariana Hall Urobilinogen Qn (U) 0.2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 2006, reportedly wnl; no fmhx of GI malignancy or IBD; smokes daily. Review of Systems PHQ Score Initial Depression Screen Score: 0 SCORE ROS - Provider Constitutional: no fever, no sweats, no weight loss. Eyes: no glasses, no blurred vision, no visual loss. ENMT: no dentures, no hoarseness, no swallowing difficulties, no hearing loss, no ear infection(s), no nose bleeds. Cardiovascular: normal blood pressure, no chest pain, regular heartbeat, no heart murmur. Respiratory: no shortness of breath, no cough, no asthma, no wheezing. Gastrointestinal: no nausea, no vomiting, no diarrhea, no constipation, no blood in stool, no change in bowel habits, no abdominal pain, no hepatitis. Genitourinary: no kidney stones, no urine infection, no dysuria. Musculoskeletal: no pain, no weakness. Skin: no changing moles, no rash, no skin lumps. Neurologic: no seizures, no epilepsy, no headache. Psychiatric: no emotional or psychiatric problem. Heme/Lymph: no bleeding problems, no anemia, no blood clots, no transfusions. Allergy/Immunologic: no swollen lymph nodes/glands, no IV drug abuse. Other: Additional ROS info: Except as noted in the above Review of Systems and in the History of Present Illness, all other systems have been reviewed and are negative or noncontributory. Physical Exam Vitals & Measurements HR: 70(Peripheral) RR: 16 BP: 116/70 HT: 64 in HT: 162.5 cm WT: 55.6 kg WT: 122.32 lb BMI: 21.06 HEENT: normal conjunctiva, sclera clear, no scleral icterus, EOM intact, PERRLA, oral mucosa moist without lesions. Neck: trachea midline, no mass, symmetric, no thyromegaly or nodules, no adenopathy Respiratory: lungs CTA, respirations non labored. Cardiovascular: regular rate and rhythm, no murmur, no pedal edema or varicosities. Gastrointestinal: soft, non distended, no tenderness, no masses, no palpable hernias, diastasis recti no, no hepatosplenomegaly; normal bs Lymphatic: no cervical adenopathy, no supraclavicular adenopathy. Musculoskeletal: normal gait, digits and nails without infection, nodes, cyanosis, clubbing. Skin: no rashes, no lesions, no ulcers, no subcutaneous nodules, induration. Psychiatric/Neuro: oriented to time, place, person, judgement normal, affect appropriate for age, insight intact, no focal deficits. Tests: review of old records completed , Discussed surgical options, risks, and possible complications with patient. Assessment/Plan 1. Screening for malignant neoplasm of colon (Z12.11: Encounter for screening for malignant neoplasm of colon) plan colonoscopy under anesthesia, informed consent obtained. Follow-up No qualifying data available Problem List/Past Medical History Ongoing Alcohol abuse BMI 21.0-21.9, adult Diabetes mellitus Endometriosis Essential hypertension Mixed hyperlipidemia Screening for malignant neoplasm of colon Smoker Historical No qualifying data Procedure/Surgical History Colonoscopy (2006), Abdominal hysterectomy, Carpal tunnel release, section, Cholecystectomy, Colonoscopy, Colonoscopy, Laparoscopy. Medications Lantus 100 units/mL Injection-Insulin, 12 unit(s), SubCutaneous, Daily NovoLOG 100 units/mL injectable solution Allergies Vicodin (Rash) aspirin (Rash) penicillin (Rash) statins (Nausea and vomiting) Social History Alcohol Current, Beer, Daily, 01/27/2023 Substance Abuse Current, Marijuana, Daily, 01/27/2023 Tobacco 10 or more cigarettes (1/2 pack or more)/day in last 30 days Tobacco Use:. Never Smokeless Tobacco Use:. Cigarettes, Started age 14.0 Years. Yes, 01/27/2023 Family History Depression: Mother. Multiple sclerosis: Mother. Immunizations Vaccine Date Status Comments influenza virus vaccine, inactivated - Not Given Patient Refuses influenza virus vaccine, inactivated - Not Given Patient Refuses [facility] Comment on above: Result Comment: Elec tronically Signed By: RICHARD BUCKLEY, Wei Briggs.rio\Date and Time Signed: 01/27/23 14:06 EST Evaluation + Plan note 09-11-2021 Note Date & Type Note Facility 09-11-2021 Evaluation + Plan note Diagnostic Tests PendingHepatitis B Surface Antigen 09/11/21RPR with Conf Rfx 09/11/21HIV Screen 4th Generation wRfx 09/11/21 [facility] Hospital course Narrative Note Date & Type Note Facility Hospital course Narrative No data available for this section [facility] Hospital Discharge instructions Note Date & Type Note Facility Hospital Discharge instructions No data available for this section [facility] Progress note Note Date & Type Note Facility Progress note No data available for this section [facility] Summary Purpose Family History No Family History Records FoundNo Family History Records FoundNo Family History Records Found No data available for this section No Family History Records Found Advance Directives No Advanced Directives Records FoundNo Advanced Directives Records FoundNo Advanced Directives Records FoundNo Advanced Directives Records Found Additional Source Comments Care Team (unrecognized sect ion and content) Personnel Name: NONE, XXXX Address: [place] Name: Odilia BAINS Address: [address] [place] [address], [facility] [address] [address] Personnel Name: DOUGLAS BRITTON CNP Address: Address: [address] [place] [id number] INFORMATION SOURCE (unrecogn ized section and content) DATE CREATED AUTHOR 09/25/2021 [facility] dical Specialist DATE CREATED AUTHOR AUTHOR'S ORGANIZ ATION 11/24/2021 [facility] DATE CREATED AUTHOR AUTHOR'S ORGANIZ ATION 02/24/2022 [facility] DATE CREATED AUTHOR AUTHOR'S ORGANIZ ATION 01/29/2023 [facility] FOR RECORDS PERTAINING TO PATIENTS WHO ARE OR HAVE BEEN ENROLLED IN A CHEMICAL DEPENDENCY/SUBSTANCEABUSE PROGRAM, SOME INFORMATION MAY BE OMITTED. This clinical summary was aggregated from multiple sources. Caution should be exercised in using it in the provision of clinical care. This summary normalizes information from multiple sources, and as a consequence, information in this document may materially change the coding, format and clinical context of patient data. In addition, data may be omitted in some cases. CLINICAL DECISIONS SHOULD BE BASED ON THE PRIMARY CLINICAL RECORDS. [facility] [employer], [facility]. provides no warranty or guarantee of the accuracy or completeness of information in this document.
[2023-02-10 07:31] VITALS: BP 141/88; PULSE 62; RESP 16; TEMP 35.8; O2SAT 98; BMI 23.1
[2023-02-10] MEDS: LACTATED RINGER'S SOLUTION 1,000 ML 50 ML IV (07:46)
[2023-02-10 09:18] VITALS: BP 114/80; PULSE 90; RESP 16; O2SAT 99
[2023-02-10 09:36] VITALS: BP 133/80; PULSE 91; RESP 16; O2SAT 99
== END 2023-02-10 09:51 | disposition home or self-care (01) ==
PROVIDERS: PCP Nurse Practitioner Primary Care; Visit Provider Surgery
PROC: (CPT 812; principal; 2023-02-10 08:20)
DX: Z12.11 Encounter for screening for malignant neoplasm of colon (principal); E11.9 Type 2 diabetes mellitus without complications; I10 Essential (primary) hypertension; E78.2 Mixed hyperlipidemia; F10.10 Alcohol abuse, uncomplicated; Z90.49 Acquired absence of other specified parts of digestive tract; Z90.710 Acquired absence of both cervix and uterus; Z79.4 Long term (current) use of insulin; F17.210 Nicotine dependence, cigarettes, uncomplicated
CPT/HCPCS: 45378; J2704

== ENCOUNTER 2023-06-14 12:27 | Outpatient (OUT) | payer MEDICAID, SELFPAY ==
--- NOTE | 2023-06-14 12:36 | XR_ITS ---
The [address] [address] Patient Name: KERLINE SANDERS MRN: [id number] date: 1970 Sex: F Assigned Patient Location: [facility] Current Patient Location: [facility] Accession/Order Number: [id number] Exam Date: 06/14/2023 12:40 Report Date: 06/14/2023 15:37 At the request of: NIKIA HEATH Procedure: XR chest 2V EXAMINATION: XR chest 2V HISTORY: shortness of breath R06.02 COMPARISON: No relevant comparison available. TECHNIQUE: PA and lateral FINDINGS: LUNGS: No significant pulmonary parenchymal abnormalities. VASCULATURE: No increased pulmonary vasculature. PLEURA: No pneumothorax, effusion, or pleural thickening. CARDIAC: No cardiomegaly or cardiac silhouette abnormality. MEDIASTINUM: No visible mass or adenopathy. BONES: No fracture or visible bone lesion. OTHER: Negative. XR/XR chest 2V IMPRESSION: No acute cardiopulmonary process Electronically authenticated by: ANNA MARIE INGRAM Date: 06/14/2023 15:37
[2023-06-14 12:39] LABS: Hemoglobin 13.3 g/dL (12.0-16.0)
--- NOTE | 2023-06-14 13:39 | RT_ITS ---
The [facility] Test Date: 2023-06-14 Pat Name: KERLINE SANDERS Department: Room: - Gender: Female [employer] Examiner: Maricruz Edwards RRT : 1970 Requested By: [id number] Order Number: [id number] Reading MD: Jong Levine Interpretive Statements Pulmonary function testing was completed according to ATS criteria. Findings were considered accurate and reproducible. No bronchodilator was administered due to normal spirometric values. Spirometry: -FEV1/FVC: Normal @ 82% -FEV1: Normal @ 96% -FVC: Normal @ 93% Lung volumes by plethysmography: -RV: Increased @ 134% -TLC: Normal @ 114% Diffusion capacity: -DLCO: Normal @ 107% when corrected for Hb 13.3g/dL Flow-volume loop: -Normal shape Impressions: -Essentially normal PFT. If asthma remains in the differential, may consider methacholine challenge testing. Clinical correlation required. Electronically Signed On 06-15-2023 10:56:21 EDT by Jong Levine
== END 2023-06-14 12:28 | disposition home or self-care (01) ==
LOC: RAD 12:27
PROVIDERS: PCP Nurse Practitioner; Visit Provider Nurse Practitioner
DX: R06.02 Shortness of breath (principal)
CPT/HCPCS: 36415; 71046; 85018; 94010; 94726; 94729

== ENCOUNTER 2023-09-29 06:57 | Outpatient (OUT) | payer MEDICAID, SELFPAY ==
--- NOTE | 2023-09-29 | PCN_ITS ---
CARDIAC STRESS TEST Requesting Physician: Procedure Date: 09/29/2023 This was a treadmill stress test with myocardial perfusion imaging, performed at the [facility] on 09/29/2023. The informed consent was obtained. An intravenous line was secured. Baseline ECG and vital signs were obtained. The patient exercised on a treadmill according to the Tom protocol. Cardiolite was administered at peak stress and the patient then went on to obtain myocardial perfusion imaging. Resting heart rate was 90 BPM and maximum heart rate was 155 BPM, representing 91% of maximal predicted heart rate. Resting blood pressure is 132/78 and maximum blood pressure was 172/84. Total exercise time was 5 minutes and 59 seconds, and the patient reached stage 2 of the Tom protocol and achieved 7 METS. Reason for stopping the test was achieving target heart rate and shortness of breath. Resting ECG showed sinus rhythm with mild sinus arrhythmia. ECG during and at peak exercise showed sinus tachycardia with upsloping minor ST segment depressions seen in leads V4, V5 and V6, as well as leads 2, 3 and [address] No ischemic ST segment changes were seen. SUMMARY OF THE FINDINGS: 1. No evidence of ischemic ECG changes seen during treadmill exercise stress test. 2. Reyes treadmill score of +6 is associated with low risk for intermediate accountant cardiac events. 3. Mildly elevated blood pressure at rest with appropriate blood pressure response to exercise. 4. Myocardial perfusion images will be reported separately. CATALINOD
--- OUTSIDE RECORDS SUMMARY | 2023-09-29 07:00 | XMS_ITS | CCD ---
Author Organization [facility] Inform ion [facility] Care Team Providers Care Integration Solution Architect Name Role Phone NONE, XXXX Primary Care [...] Unavaila ble PAY, DR MOELLER Consulting Unavailable MIRTHA, SYDNIE HAYES Consulting Unavailable SHAMMO, DOUGLAS Primary Care Unavailable HAY, DR NARANJO Admitting Unavailable HAY, DR NARANJO Attending Unavailable HAY, DR NARANJO Consulting Unavailable MARIA TERESA, DR TONEY Vinson Admitting Unavailsupa MOREL, DR TONEY Vinson Attending Unavailabl e COURTNEY, DR LATANYA Spaulding Consulting Unavailable REQUEST, DR MENDOZA LISTED Primary Care Unavaila ble REINECK, DR TONEY Vinson Consulting Unavailabl e SYDNIE SHANNON Consulting Unavailable MAGNOLIA DUMONT Consulting Unavailable SHAMMO, DOUGLAS DIAMOND Primary Care Physician SHAMMO, DOUGLAS Referring Unavailable NILLWei Attending Unavailable SHAMMO, DOUGLAS Primary Care Unavailable SHAMMO, DOUGLAS Primary Care Unavailable SHAMMO, DOUGLAS Primary Care Unavailable SHAMMO, DOUGLAS Referring Unavailable NILWei Slater Attending Unavailable SHAMMO, DOUGLAS Primary Care Unavailable NILLWei Attending Unavailable SHAMMO, DOUGLAS Primary Care Unavailable Papito Carrera Admitting Unavailable Papito Carrera Attending Unavailable Unavailable Primary Care Provider Unavailsupa Ravi MD, Douglas Unavailable Jd Rosas MD Primary Care Provider [phone] KAREN FORTUNE Attending Unavailable KAREN FORTUNE Attending Unavailable PAPITO CARRERA Attending Unavailable ODILIA RUBIO Attending Unavailable AYDEN YOON Attending Unavailable CELENA PINEDA Attending Unavailable BUDDY KEYS Attending Unavailable Allergies Allergy Classification Reported Allergen(s) Allergy Type Date of Onset Reaction(s) Facility (4 sources) Acetaminophen / HYDROcodone; Translations: [acetaminophen-hy drocodone] Drug Allergy Itching of skin (finding), Eruption of skin (disorder) [facility] (5 sources) Aspirin; Translations: [aspirin] Drug Allergy 12-10-19 23 Unknown (qualifier value), Eruption of skin (disorder) [facility] (5 sources) Penicillin; Translations: [penicillin] Drug Allergy 08-23-19 24 Eruption of skin (disorder) [facility] (1 source) Acetaminophen / HYDROcodone Drug Allergy 07-11-19 15 [facility] (1 source) Aspirin Drug Allergy 07-11-19 15 [facility] (1 source) Penicillins Drug allergy (disorder) 07-11-19 15 [facility] (4 sources) HMG-CoA reductase inhibitor; Translations: [statins] Drug intolerance 12-10-19 23 Nausea and vomiting (disorder), GI intolerance [facility] (5 sources) Acetaminophen / HYDROcodone; Translations: [HYDROCODONE-ACET AMINOPHEN] Drug Allergy 12-10-19 23 Rash [facility] (4 sources) Aluminum aspirin Drug Allergy 12-10-19 23 Rash [facility] (2 sources) Penicillin G sodium Allergy to substance 12-10-19 Rash [facility] (2 sources) Penicillin G Drug Allergy 04-08-19 [facility] Medications Current Medications Medication Drug Class(es) Dates Sig (Normalized) Sig (Original) acetaminophen 325 mg / oxyCODONE hydrochloride 5 mg oral tablet (1 source) Opioid Agonist Start: 11-07-2015 Percocet 325 mg-5 mg Tab See Instructions, as needed for pain, 40 tab(s), Refill(s) 0, 1-2 tab(s) [facility]hr, [facility] Start Date: 11/07/15 Status: Ordered aluminum chloride 200 mg/ml topical solution (2 sources) Start: 04-01-2023 aluminum chloride (Drysol) 20 % external solution Indications: Primary focal hyperhidrosis Apply to clean, dry skin, once daily, at bedtime. Do not apply to broken or freshly shaven skin. 30 day supply 60 mL 11 04/01/2023 Active Start: 04-01-2023 aluminum chlor allison (Drysol) 20 % external solution Indications: Primary focal hyperhidrosis Apply to clean, dry skin, once daily, at bedtime. Do not apply to broken or freshly shaven skin. 30 day supply 60 mL 11 04/01/2023 Active cholecalciferol 0.01 mg/ml oral solution (2 sources) Vitamin D cholecalciferol (Vitamin D3) 10 MCG/ML liquid as directed Orally 0 Active Continuous Blood Gluc Material Flow Analyst (Dexcom G6 juvenile justice officer) device (2 sources) Start : 04-07 Continuous Blood Gluc Material Flow Analyst (Dexcom G6 juvenile justice officer) device Continuous Blood Gluc Sensor (Dexcom G6 Sensor) misc (2 sources) Start : 01-08 Continuous Blood Gluc Sensor (Dexcom G6 Sensor) misc CHANGE SENSOR EVERY 10 DAYS. 0 01/08/2023 Active Continuous Blood Gluc Sensor (Dexcom G7 Sensor) misc (2 sources) Start : 03-31 Continuous Blood Gluc Sensor (Dexcom G7 Sensor) misc PLACE 1 SENSOR THEN CHANGE EVERY 10 DAYS 0 03/31/2023 Active Continuous Blood Gluc Transmit (Dexcom G6 transmitter) misc (2 sources) Start : 02-01 Continuous Blood Gluc Transmit (Dexcom G6 transmitter) misc CHANGE EVERY 90 DAYS. 0 02/01/2023 Active docusate sodium 100 mg oral capsule (1 source) Start : 11-06 take 1 capsule by mouth twice daily as needed for constipation Colace 100 mg Cap 100 mg = 1 cap(s), Oral, BID, PRN for constipation, # 20 cap(s), Refills(s) 0, Pharmacy: [facility] Start Date: 11/07/15 Status: Ordered estradiol 0.1 mg/ml vaginal cream (2 sources) Estrogen Start : 04-09 End: 02-17 estradiol (Estrace) 0.1 MG/GM vaginal cream Indications: Dyspareunia in female Insert 1 g into the vagina 3 (three) times a week Insert 1/4 applicator in vagina at bedtime every night for 2 weeks, then use 2-3 nights per week. 45 g 2 04/09/2023 02/18/2024 Active 0.2 ml glucagon 5 mg/ml auto-injector (2 sources) Antihypoglycemic Agent Start : 08-05 inject 1 mg by subcutaneous injection once Gvoke HypoPen 2-Pack 1 MG/0.2ML injection INJECT 1 MG SUBCUTANEOUSLY ONE TIME 0 08/05/2022 Active insulin aspart, human 100 unt/ml injectable solution (6 sources) Insulin Analog Start : 01-19 NovoLOG 100 units/mL injectable solution as directed, Refills(s) 0 Start Date: 01/19/23 Status: Ordered Start: 02-27-2015 inject 1 [IU] by sub cutaneous injection once NovoLog SubCutaneous, TIDAC, 1 unit for every 15 carbs, Refills(s) 0, Blood glucose Start Date: 02/27/15 Status: Ordered NovoLOG FLEXPEN 100 UNIT/ML pen INJECT 1 UNIT/10 CARBS SUBCUTANEOUSLY DAILY *MAX 25 UNITS PER DAY* 0 Active Insulin Aspart ( NovoLOG) 100 UNIT/ML solution 1 (one) time each day at the same time. 0 Active insulin glargine 100 unt/ml injectable solution (6 sources) Insulin Analog Start: 01-19-2023 inject 12 [IU] by subcutaneous injection once daily Lantus 100 units/mL Injection-Insulin 12 unit(s), SubCutaneous, Daily, Refills(s) 0 Start Date: 01/19/23 Status: Ordered Start: 11-02-2022 Lantus SoloSta r 100 UNIT/ML pen INJECT 15 UNITS DAILY DIRECTED 0 11/02/2022 Active Start: 05-16-2011 inject 12 [IU] by scruggs bcutaneous injection once daily Lantus 12 unit(s), SubCutaneous, Daily, at noon, Blood glucose Start Date: 05/16/11 Status: Ordered metroNIDAZOLE 500 mg oral tablet (2 sources) Nitroimidazole Antimicrobial Start: 12-09-2022 metroNIDAZOLE (Flagyl) 500 MG tablet every 12 (twelve) hours. 0 12/09/2022 Active Problems Active Problems Problem Classification Problem Date [...] Translations: [Endometriosis (clinical)] 10-24-2015 Chronic Essential hypertension (3 sources) Essential hypertension; Translations: [Essential (primary) hypertension] Onset: 08-23-2023 01-19-2023 Chronic Immunizations and screening for infectious disease (1 source) Encounter for screening for other viral diseases; Translations: [ENC SCREENING FOR OTH VIRAL DZ] Onset: 12-04-2021 Episodic Inflammation; infection of eye (except that caused by tuberculosis or sexually transmitteddisease) (2 sources) Unspecified blepharitis right upper eyelid; Translations: [Unspecified conjunctivitis] Onset: 02-24-2022 Episodic Neoplasms of unspecified nature or uncertain behavior (2 sources) Neoplastic disease; Translations: [Neoplasm of unspecified behavior of bone, soft tissue, and skin] 04-01-2023 Episodic Nonspecific chest pain (2 sources) Other chest pain; Translations: [Other chest pain] Onset: 08-23-2023 Episodic Nutritional deficiencies (1 source) Vitamin D deficiency, unspecified; Translations: [VITAMIN D DEFICIENCY UNSPECIFIED] Onset: 12-04-2021 Chronic Other aftercare (1 source) terminal makeup operator (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) 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; 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] Onset: 02-24-2022 Episodic Other aftercare (1 source) Other terminal makeup operator (current) drug therapy; Translations: [OTH BARREL PLATER CURRENT DRUG THERAPY] Onset: 02-24-2022 Episodic Other eye disorders (3 sources) Ocular pain, right eye; Translations: [OCULAR PAIN RIGHT EYE] Onset: 02-21-2022 Episodic Other female genital disorders (2 sources) Pain in female genitalia on intercourse; Translations: [Unspecified dyspareunia] 04-08-2023 Chronic Other lower respiratory disease (2 sources) Shortness of breath; Translations: [Shortness of breath] Onset: 08-23-2023 Episodic Other screening for suspected conditions (not mental disorders or infectious disease) (4 sources) Encounter for screening for other suspected endocrine disorder; Translations: [Screening for malignant neoplasm of colon done] Onset: 12-04-2021 Episodic Other skin disorders (2 sources) Primary focal hyperhidrosis; Translations: [Primary focal hyperhidrosis, unspecified] 04-01-2023 Episodic Substance-related disorders (3 sources) Smoker; Translations: [...] Results Test Name Value Interpretation Reference Range Facility Office Visiton 08-23-2023 Follow-up visit [id number] Jes Umanzor 1970 F Date Provider Department Center 08/23/2023 BUDDY GIVENS Family History Problem Relation Age of Onset No Known Problems Mother No Known Problems Father Stroke Maternal Grandmother Diabetes Paternal Grandfather Family Status - Relation Status Age at Mother Father Maternal Grandmother Paternal Grandfather Level of Service:88486 HI OFFICE/OP CONSLTJ NEW/EST PT MOD MDM 40 MINUTES Reason for Visit and Comments: Shortness of Breath [415663] Chest Pain [447301] Normal [facility] No Panel Informationon 04-01 Type of biopsy: punc h Informed consent: discussed and consent obtained Informed consent comment: The risks and benefits were discussed. Risks include, but are not limited to, bleeding, infection, scarring, pain, & nerve damage. An opportunity to ask questions prior to the procedure was permitted and questions were answered. Patient was prepped and draped in usual sterile fashion: Area cleansed with alcohol. Anesthesia: the lesion was anesthetized in a standard fashion Anesthetic: 1% lidocaine w/ epinephrine 1-100,000 buffered w/ 8.4% NaHCO3 Punch size: 3 mm (A biopsy by punch method was performed using a dermal punch) Suture size: 4-0 Suture type: nylon Suture type comment: Hemostasis was achieved with suture. Hemostasis achieved with: suture Outcome: patient tolerated procedure well Post-procedure details: sterile dressing applied and wound care instructions given Post-procedure details comment: Emphasized the need to contact clinic for any signs of infection, uncontrollable bleeding, or complications. Dressing type: bandage Additional details: Amount of lidocaine used: 0.5 cc Number of sutures used: 2 Specimen sent for: H&E or DIF Photo taken yes [facility] Outside Colonoscopyon 2022 Outside Colonoscopy [id number]#1 .00TIFF [facility] Reminderson 02-11-2023 Reminders - From: Karlene Peterson LPN To: N - Clinical; Sent: 02/11/2023 12:42:54 EST Show up: 01/11/2033 07:00:00 EST Subject: colonoscopy recall Due Date/Time: 02/10/2033 07:00:00 EST Reminder/Recall Patient due for screening colonoscopy 02/10/2033. Normal [facility] Consent for Procedure/Surger yon 01-29-2023 Consent for Procedure/Surgery [id number]#1 .00TIFF [facility] Facesheeton 01-28-2023 Facesheet [id number]#1 .00TIFF [facility] Ambulatory Visit Summaryon 1 03-30-2022 Ambulatory Visit Summary JES UMANZOR :1970 Visit Date:01/27/2023 Ambulatory Visit Instructions Your Diagnosis Screening for malignant neoplasm of colon Your Care Team Attending Physician - RICHARD BUCKLEY, Wei Spaulding Primary Care Physician - TOBI LEIVA, DOUGLAS FIELDS Referring Physician - TOIB LEIVA, DOUGLAS FIELDS This Is Your Medications List Contact prescribing [...] you for choosing us for your care. [facility] Insurance Correspondenceon 1 03-30-2022 Insurance Correspondence [id number]# 1.00TIFF [facility] Physician Orderon 01-05-2023 Physician Order [id number]# 1.00TIFF Normal [facility] Physician Referralon 023 Physician Referral [id number]#1 .00TIFF Normal [facility] C-PEPTIDE, SERUMon C-Peptide, Serum <0.1 Critically low 1.1-4.4 [facility] Comment on above: Result Comment: C-Pe ptide reference interval is for fasting patients. Performed By: #### E MEY FINN #### [facility] [address] [place] [address] Dr. Dariana Hall HEPATITIS C AB CASCADE TO QU ANT PCR GENOon 12-03-2021 HCV AB <0.1 Normal 0.0-0.9 [facility] Comment on above: Performed By: #### H EPCASC #### [facility] [address] [place] [address] Dr. Dariana Hall Interpretation: Comment Normal [facility] Comment on above: Result Comment: Nega tive Not infected with HCV, unless recent infection is suspected or other evidence exists to indicate HCV infection. Performed By: #### H EPCASC #### [facility] [address] [place] [address] Dr. Dariana Hall CBC AUTO DIFFon 12-02-2021 BASO # 0.0 103/ul Normal 0.0-0.1 [facility] Comment on above: Performed By: #### C BC #### [facility] [address] [place] [address] Dr. Dariana Hall Basophils/100 WBC (Bld) 0.4 % Normal 0.2-2.0 [facility] Comment on above: Performed By: #### C BC #### [facility] [address] [place] [address] Dr. Dariana Hall EO # 0.1 103/ul Normal 0.0-0.7 [facility] Comment on above: Performed By: #### C BC #### [facility] [address] [place] [address] Dr. Dariana Hall Eosinophils/100 WBC (Bld) 1.0 % Normal 0.9-7.0 [facility] Comment on above: Performed By: #### C BC #### [facility] [address] [place] [address] Dr. Dariana Hall Erythrocyte distribution width (RBC) [Ratio] 12.6 % Normal 11.0-15.0 [facility] Comment on above: Performed By: #### C BC #### [facility] [address] [place] [address] Dr. Dariana Hall Hematocrit (Bld) [Volume fraction] 39.8 % Normal 36.0-48.0 [facility] Comment on above: Performed By: #### C BC #### [facility] [address] [place] [address] Dr. Dariana Hall Hemoglobin (Bld) [Mass/Vol] 13.0 g/dL Normal 12.0-16.0 [facility] Comment on above: Performed By: #### C BC #### [facility] [address] [place] [address] Dr. Dariana Hall IG # 0.02 10e3/ul Normal 0.00-0.03 [facility] Comment on above: Performed By: #### C BC #### [facility] [address] [place] [address] Dr. Dariana Hall IG % 0.3 % Normal 0.0-0.5 [facility] Comment on above: Performed By: #### C BC #### [facility] [address] [place] [address] Dr. Dariana Hall LYMPH # 2.8 103/ul Normal 1.2-3.8 [facility] Comment on above: Performed By: #### C BC #### [facility] [address] [place] [address] Dr. Dariana Hall Lymphocytes/100 WBC (Bld) 35.8 % Normal 20.5-60.0 [facility] Comment on above: Performed By: #### C BC #### [facility] [address] [place] [address] Dr. Dariana Hall MANUAL DIFF REQ NO Normal [facility] Comment on above: Performed By: #### C BC #### [facility] [address] [place] [address] Dr. Dariana Hall MCH (RBC) [Entitic mass] 32.7 pg Normal 26.7-34.0 [facility] Comment on above: Performed By: #### C BC #### [facility] [address] [place] [address] Dr. Dariana Hall MCHC (RBC) [Mass/Vol] 32.7 g/dL Normal 29.9-35.2 [facility] Comment on above: Performed By: #### C BC #### [facility] [address] [place] [address] Dr. Dariana Hall MCV (RBC) [Entitic vol] 100.3 fL Critically high 81.0-99.0 [facility] Comment on above: Performed By: #### C BC #### [facility] [address] [place] [address] Dr. Dariana Hall MONO # 0.5 103/ul Normal 0.3-0.8 [facility] Comment on above: Performed By: #### C BC #### [facility] [address] [place] [address] Dr. Dariana Hall Monocytes/100 WBC (Bld) 6.0 % Normal 1.7-12.0 [facility] Comment on above: Performed By: #### C BC #### [facility] [address] [place] [address] Dr. Dariana Hall NEUT # 4.4 103/ul Normal 1.4-6.5 [facility] Comment on above: Performed By: #### C BC #### [facility] [address] [place] [address] Dr. Dariana Hall Neutrophils/100 WBC (Bld) 56.5 % Normal 43.0-75.0 [facility] Comment on above: Performed By: #### C BC #### [facility] [address] [place] [address] Dr. Dariana Hall Platelet mean volume (Bld) [Entitic vol] 9.9 fL Normal 9.5-13.5 [facility] Comment on above: Performed By: #### C BC #### [facility] [address] [address] [address] Dariana Hall PLT 266 103/ul Normal 150-450 [facility] Comment on above: Performed By: #### C BC #### [facility] [address] [address] [address] Dariana Hall RBC 3.97 106/ul Critically low 4.20-5.40 [facility] Comment on above: Performed By: #### C BC #### [facility] [address] [place] [address] Dr. Dariana Hall WBC 7.8 103/ul Normal 4.0-11.0 [facility] Comment on above: Performed By: #### C BC #### [facility] [address] [place] [address] Dr. Dariana Hall LIPID PROFILEon 12-02-2021 CHOL-HDL RATIO NORM SEE BELOW Normal [facility] Comment on above: Result Comment: 3.3 - 4.4 LOW RISK 4.4 - 7.1 AVERAGE RISK 7.1 - 11.0 MODERATE RISK >11.0 HIGH RISK Performed By: #### P HOS, LIPID #### [facility] [address] [place] [address] Dr. Dariana Hall Cholesterol [Mass/Vol] 208 mg/dL Critically high <=200 [facility] Comment on above: Performed By: #### P HOS, LIPID #### [facility] [address] [place] [address] Dr. Dariana Hall Cholesterol in HDL [Mass/Vol] 107 mg/dL Critically high 40-60 [facility] Comment on above: Performed By: #### P HOS, LIPID #### [facility] [address] [place] [address] Dr. Dariana Hall Cholesterol in LDL [Mass/Vol] 89.2 mg/dL Normal [facility] Comment on above: Performed By: #### P HOS, LIPID #### [facility] [address] [address] [address] Dariana Hall Cholesterol.total/Ch olesterol in HDL [Mass ratio] 1.9 {ratio} Normal [facility] Comment on above: Performed By: #### P HOS, LIPID #### [facility] [address] [address] [address] Dariana Hall HDL NORMAL > or = 60 mg/dl - LO W CARDIOVASCULAR RISK <40 mg/dl - HIGH CARDIOVASCULAR RISK Normal [facility] Comment on above: Performed By: #### P HOS, LIPID #### [facility] [address] [address] [address] Dariana Hall LDL CALC NORMAL SEE BELOW Normal [facility] Comment on above: Result Comment: <100 mg/dl OPTIMAL 100 - 129 mg/dl NEAR OR ABOVE OPTIMAL 130 - 159 mg/dl BORDERLINE HIGH 160 - 189 mg/dl HIGH >190 mg/dl VERY HIGH Performed By: #### P HOS, LIPID #### [facility] [address] [address] [address] Dariana Hall Triglyceride [Mass/Vol] 59 mg/dL Normal <=150 [facility] Comment on above: Performed By: #### P HOS, LIPID #### [facility] [address] [place] [address] Dr. Dariana Hall VLDL CALC 11.8 mg/dL Normal [facility] Comment on above: Performed By: #### P HOS, LIPID #### [facility] [address] [address] [address] Dariana Hall MICROALB CREAT RATIO RANDOMo n 12-02-2021 mALB <1.3 Normal <=30.0 [facility] Comment on above: Performed By: #### M CRR #### [facility] [address] [place] [address] Dr. Dariana Hall MALB CR RATIO 9.3 mg/g Normal 0.0-29.9 [facility] Comment on above: Performed By: #### M CRR #### [facility] [address] [place] [address] Dr. Dariana Hall MALB CR RATIO RANGE SEE BELOW Normal [facility] Comment on above: Result Comment: NO M ICROALBUMINURIA 0-29 MG/G CLINICAL MICROALBUMINURIA 30-300 MG/G MACROALBUMINURIA >300 MG/G Performed By: #### M CRR #### [facility] [address] [place] [address] Dr. Dariana Hall URINE CREAT 139.30 mg/dL Normal 20.00-300.00 [facility] Comment on above: Performed By: #### M CRR #### [facility] [address] [address] [address] Dariana Hall PHOSPHORUSon 12-02-2021 Phosphate [Mass/Vol] 4.1 mg/dL Normal 2.6-4.7 [facility] Comment on above: Performed By: #### P HOS, LIPID #### [facility] [address] [place] [address] Dr. Dariana Hall PROF 14(COMP METB)on 022 Albumin [Mass/Vol] 3.6 g/dL Normal 3.4-5.0 [facility] Comment on above: Performed By: #### Keshia FINN UMICRO #### [facility] [address] [place] [address] Dr. Dariana Hall Albumin/Globulin [Mass ratio] 1.1 {ratio} Normal [facility] Comment on above: Performed By: #### E RUChelly, UMICRO #### [facility] [address] [address] [address] Dariana Hall ALP [Catalytic activity/Vol] 119 U/L Critically high 46-116 [facility] Comment on above: Performed By: #### E HUMA, UMICRO #### [facility] [address] [address] [address] Dariana Hall ALT [Catalytic activity/Vol] 23 U/L Normal 14-59 [facility] Comment on above: Performed By: #### E RUChelly, UMICRO #### [facility] [address] [address] [address] Dariana Hall Anion gap [Moles/Vol] 12.9 mmol/L Normal [facility] Comment on above: Performed By: #### MEY WALTERS #### [facility] [address] [place] [address] Dr. Dariana Hall AST [Catalytic activity/Vol] 14 U/L Critically low 15-37 [facility] Comment on above: Performed By: #### RUSSELL WALTERSRO #### [facility] [address] [place] [address] Dr. Dariana Hall Bilirubin [Mass/Vol] 0.6 mg/dL Normal 0.2-1.0 [facility] Comment on above: Performed By: #### RUSSELL WALTERSRO #### [facility] [address] [place] [address] Dr. Dariana Hall Calcium [Mass/Vol] 8.7 mg/dL Normal 8.5-10.1 [facility] Comment on above: Performed By: #### RUSSELL WALTERSRO #### [facility] [address] [place] [address] Dr. Dariana Hall Chloride [Moles/Vol] 104 mmol/L Normal 98-107 [facility] Comment on above: Performed By: #### MEY WALTERS #### [facility] [address] [place] [address] Dr. Dariana Hall CO2 [Moles/Vol] 30.2 mmol/L Normal 21.0-32.0 [facility] Comment on above: Performed By: #### RUSSELL WALTERSRO #### [facility] [address] [place] [address] Dr. Dariana Hall Creatinine [Mass/Vol] 0.53 mg/dL Critically low 0.55-1.02 [facility] Comment on above: Performed By: #### RUSSELL WALTERSRO #### [facility] [address] [place] [address] Dr. Dariana Hall EGFR-AF PRYDEINIG >60 Normal >=60 [facility] Comment on above: Performed By: #### RUSSELL WALTERSRO #### [facility] [address] [place] [address] Dr. Dariana Hall EGFR-NON AF PRYDEINIG >60 Normal >=60 [facility] Comment on above: Performed By: #### MEY WALTERS #### [facility] [address] [address] [address] Dariana Hall Globulin (S) [Mass/Vol] 3.2 g/dL Normal [facility] Comment on above: Performed By: #### RUSSELL WALTERSRO #### [facility] [address] [address] [address] Dariana Hall Glucose [Mass/Vol] 151 mg/dL Critically high 74-106 T [facility] Comment on above: Performed By: #### RUSSELL WALTERSRO #### [facility] [address] [place] [address] Dr. Dariana Hall Potassium [Moles/Vol] 4.1 mmol/L Normal 3.5-5.1 [facility] Comment on above: Performed By: #### RUSSELL WALTERSRO #### [facility] [address] [place] [address] Dr. Dariana Hall Protein [Mass/Vol] 6.8 g/dL Normal 6.4-8.2 [facility] Comment on above: Performed By: #### RUSSELL WALTERSRO #### [facility] [address] [place] [address] Dr. Dariana Hall Sodium [Moles/Vol] 143 mmol/L Normal 136-145 [facility] Comment on above: Performed By: #### RUSSELL WALTERSRO #### [facility] [address] [place] [address] Dr. Dariana Hall Urea nitrogen [Mass/Vol] 10.0 mg/dL Normal 7.0-18.0 [facility] Comment on above: Performed By: #### RUSSELL WALTERSRO #### [facility] [address] [address] [address] Dariana Hall Urea nitrogen/Creatinine [Mass ratio] 18.9 mg/mg Normal [facility] Comment on above: Performed By: #### RUSSELL WALTERSRO #### [facility] [address] [place] [address] Dr. Dariana Hall TSHon 12-02-2021 TSH 2.284 uIU/mL Normal 0.358-3.740 [facility] Comment on above: Performed By: #### RUSSELL WALTERSRO #### [facility] [address] [place] [address] Dr. Dariana Hall VITAMIN D 25 OHon 12-02-2021 VIT D 25-OH 78.8 ng/mL Normal [facility] Comment on above: Performed By: #### RUSSELL WALTERSRO #### [facility] [address] [place] [address] Dr. Dariana Hall VIT D RANGES SEE BELOW Normal [facility] Comment on above: Result Comment: <20 ng/mL Vit D deficient 20 - <30 ng/mL Vit D insufficient 30 - 100 ng/mL Vit D sufficient >100 ng/mL Potential Toxicity Performed By: #### RUSSELL WALTERSRO #### [facility] [address] [place] [address] Dr. Dariana Hall CULTURE URINEon 10-31-2021 CULTURE URINE Isolate 1 Escherichia coli >100,000 cfu/mL of ORGANISM 1 Escherichia coli ANTIBIOTIC M.I.C RX STATUS Ampicillin >=32 R F Ampicillin/Sulbactam >=32 R F Piperacillin/Tazobact am <=4 S F Cefazolin 16 I F Ceftazidime <=1 S F Ceftriaxone <=1 S F Ertapenem <=0.5 S F Imipenem <=0.25 S F Amikacin <=2 S F Gentamicin <=1 S F Tobramycin <=1 S F Ciprofloxacin <=0.25 S F Levofloxacin <=0.12 S F Nitrofurantoin <=16 S F Trimethoprim/Sulfamet hoxazole >=320 R F Normal [facility] Comment on above: Performed By: #### RUSSELL WALTERSRO #### [facility] [address] [place] [address] Dr. Dariana Hall ER URINE PROFILEon 2 Bilirubin Ql (U) Negative Normal NEGATIVE [facility] Comment on above: Performed By: #### Keshia FINN UMICRO #### [facility] [address] [place] [address] Dr. Dariana Hall Clarity (U) CLEAR Normal CLEAR [facility] Comment on above: Performed By: #### Keshia FINN UMICRO #### [facility] [address] [place] [address] Dr. Dariana Hall Color (U) LT. YELLOW Normal YELLOW [facility] Comment on above: Performed By: #### Keshia FINN UMICRO #### [facility] [address] [place] [address] Dr. Dariana Hall ERUROSE MARIE A micrscopic examination will be performed if indicated. Normal [facility] Comment on above: Performed By: #### Keshia FINN UMICRO #### [facility] [address] [place] [address] Dr. Dariana Hall Glucose Ql (U) 500 mg/dl Abnormal NEGATIVE [facility] Comment on above: Performed By: #### Keshia FINN UMICRO #### [facility] [address] [place] [address] Dr. Dariana Hall Hemoglobin Ql (U) SMALL Abnormal NEGATIVE [facility] Comment on above: Performed By: #### Keshia FINN UMICRO #### [facility] [address] [place] [address] Dr. Dariana Hall Ketones Ql (U) 40 mg/dl Abnormal NEGATIVE [facility] Comment on above: Performed By: #### Keshia FINN UMICRO #### [facility] [address] [place] [address] Dr. Dariana Hall LEUKOCYTES SMALL Abnormal NEGATIVE [facility] Comment on above: Performed By: #### Keshia FINN UMICRO #### [facility] [address] [place] [address] Dr. Dariana Hall Nitrite Ql (U) Positive Abnormal NEGATIVE [facility] Comment on above: Performed By: #### Keshia FINN UMICRO #### [facility] [address] [place] [address] Dr. Dariana Hall pH (U) 6.0 [pH] Normal 5-9 [facility] Comment on above: Performed By: #### RUSSELL WALTERSRO #### [facility] [address] [place] [address] Dr. Dariana Hall SPEC GRAVITY 1.015 Normal 1.005-<=1.025 [facility] Comment on above: Performed By: #### RUSSELL WALTERSRO #### [facility] [address] [place] [address] Dr. Dariana Hall UA PROTEIN TRACE Normal NEGATIVE/ TRACE [facility] Comment on above: Performed By: #### RUSSELL WALTERSRO #### [facility] [address] [place] [address] Dr. Dariana Hall UR MICRO IND INDICATED Normal [facility] Comment on above: Performed By: #### RUSSELL WALTERSRO #### [facility] [address] [place] [address] Dr. Dariana Hall Urobilinogen Qn (U) 0.2 {Deandre'U}/dL Normal 0.2 - 1. 0 [facility] Comment on above: Performed By: #### RUSSELL WALTERSRO #### [facility] [address] [place] [address] Dr. Dariana Hall URon 10-28-2021 , QUAL Negative Normal NEGATIVE [facility] Comment on above: Performed By: #### P SOLEDAD GLASER UMICRO #### [facility] [address] [place] [address] Dr. Dariana Hall URINE MICROSCOPIC ONLYon BACTERIA MODERATE Abnormal NONE SEEN [facility] Comment on above: Performed By: #### RUSSELL WALTERSRO #### [facility] [address] [place] [address] Dr. Dariana Hall Bacteria identified Cx Nom (U) INDICATED Normal [facility] Comment on above: Performed By: #### RUSSELL WALTERSRO #### [facility] [address] [place] [address] Dr. Dariana Hall CAST NONE SEEN Normal NONE SEEN [facility] Comment on above: Performed By: #### E RUR, UMICRO #### [facility] [address] [place] [address] Dr. Dariana Hall Crystals LM Nom (Urine sed) NONE SEEN Normal NONE SEEN [facility] Comment on above: Performed By: #### E RUR, UMICRO #### [facility] [address] [place] [address] Dr. Dariana Hall Epithelial cells LM Ql (Urine sed) FEW Abnormal NONE SEEN /RARE [facility] Comment on above: Performed By: #### E RUR, UMICRO #### [facility] [address] [place] [address] Dr. Dariana Hall MUCOUS NONE SEEN Normal NONE SEEN [facility] Comment on above: Performed By: #### E RUR, UMICRO #### [facility] [address] [place] [address] Dr. Dariana Hall RBC 0-2 Normal 0-2 [facility] Comment on above: Performed By: #### E RUR, UMICRO #### [facility] [address] [place] [address] Dr. Dariana Hall WBC 10-20 Abnormal NONE SEEN [facility] Comment on above: Performed By: #### E RUR, UMICRO #### [facility] [address] [place] [address] Dr. Dariana Hall XR Foot Complete Left*on [...] by Slim Rust on 09/24/2021 1520 Normal [facility] XR Shoulder Complete Right*o n 09-24-2021 [...] by Slim Rust on 09/24/2021 1528 Normal [facility] XR Spine Cervical Complete*o n 09-24-2021 XR [...] by Slim Rust on 09/24/2021 1525 Normal [facility] Coding Summary.on 09-13-2021 Coding Summary. CD:[id number] G h0bWw+PGhlYWQ+OT5XWTD tY26wdZQlpH5PU9rLXU3Q BGBGTHNXJF0YTL9iaFV6S EilM2CsqnOc GxynoIOuHO78XYs3VCW0e UiiFEurkL5peBWqH5g5Ng KmFQ42sR51CXizRILgZfS 3LjZpbjsgbWFy A5ugNbPygBJlRph+PHRhY mxlIHdpZHRoPScxMDAlJy SbsYigLD4oUx5jRTVuKCQ vbGxhcHNlOiBj x7zqBEBnJQurAP6dvCmkX 0TlhEQ2GBEgn1p8Fj41qX I+LQKcBXB6fFnlGFqcj42 5PnSfd1bjYQV5 hLIrQWltNDA3L93de8I2Q YAfCISpDNQ3fST0zC7xsN yborzeZ3WmmUWzRyH5LTD 7uIYlpA7ofNnu wazjeX8cPus+I57XBC4OH OVADM7LVvj2Y7IaWwnwzK I+WG24UQAkFF13yQNvxVY ee2wokGj9JnDd VTWgZKH6tTqfTRokz2XqV ATxI54yrTDeq6C8DEQpjR vepTNoRbQsqGW5sC0eXDb xegnkc6hdhueq Nvpfw6fjyg47jX64J30mH KvpPIJiXLT3KYSiGFNrdD wskd9sgC2uAp5+IKjok5r vi9ddkHg0VnFx WXRfchDzxKtaJSN3o9QiG d60K9LpuAewa8LtKgz9hu 27tQAei4S6oYI8GQceCEP rhA9gEEiyHbR7 BHRlJhYsjD84sSVlDEviU z2soZhctBpzTG5oREPpol naVOErhJ7mPIQfiQLvmQb bMN7lDJUerchb q950UeKePXC1WWUlwDUhP 4UexD2vVcErHSAuGXUnL4 OigVDkNPpdL671LPrlBqL 3FPXjumLoB4Fz IRNyqArfBkC4v9D7Yv1Pf 7CvtnctVTV3WBbwTTM3Lm EfKvQeLwL5J6FdLuw5QJR mcOtoIM3nS4Bh ZNWbubalmomkaRY6OCGrD QRaeR74lKZeMFbtVf2dn4 U1j890XEPsCYUkzX91Oo8 udDogMTBwdCBU wZ5fwzvgr3wpqixiSpIyG BLnFHe7ETk3HLFdvQizHx BsEJN5UlY2SBR0wOKflN6 diHyccjmuyF2x Oyc+W84zsF3rXSE4IHN2i ekzJEBzreZyRT47CL85D6 RyPjwvdGFibGU+PGRpdiB stZbwEX7qTkHf z7xpe3HdNTmwJ3CpPOMaK HvpEyu7TLVnQKH6fZL0gT 5gHPCqNOzzz3P6eUY2T8T ebjUxyv2ho1cq EWAvFYhaM88tzKSps1Q1X TQskXG3BEBlkUuhXsGaaU 93Oyc+WAVvaAzpn8MdRoe ge9ken2tokZe9 RcNtRFTvaoNowMhbHYL5d 3KiOr03R41pDXkvNCQdHL XwVWZeJJSqjYfqis5rvZ3 wIi8+PGNvbCB3 iSN7oG0mIIVgMgA6UZkhS 086AaNvxAAtSgygp6usu5 civHx8BdZsNFFkgyYbxBm fBNS6g2DpUs13 F18iVMavWQVyDAZsEDAgX GZjuMjrmm5cfU2dFk6+PC 6yd9bdmj68kX05gXG+PHR sTLF0pIxdSQyj BNCdoW0bEJnnTqY4RPNqR lEziK68uDHcVSrcHe6eoT hxpDitRS2cXOLdoelrb90 2GfStv5aiJNBm uNMnXEtvJAV3W52yc8P1K AMmCIMsZVU9hUP3tQ0mvZ lnbjogbGVmdDsgdmVydGl dQChqTXllA950 IHRvcDsnPlBhdGllbnQgT oCyDPj4Z0UqFip6UFBmiP qaCL7jlTKnTIezEg9bwTp zvUkgOC4nLDUz phuum888QrUdh4zuUAXho SIlNZhwOFY4R65zx4C3LJ DzAUDbEQB1ePD5dF8apCe nbjogbGVmdDsg qoQdnFvsXEgzMGrbU656R HRvcDsnPkJpcnRoIERhdG I5BO37HA30fXYfh9R0qIT 3N6KzSOIrgixq giaevQK2YJNyAPAdsR74D u6nlIomJc9sKODeXBJ3WQ GsiAErZ7QdjZ8pWuDlDCN hSLYyV4DxjWLu BMksM079DMlmOrW2TZCir gEoK7ApUXXisFcvIpE3p4 N5Of5IP6H2FM82IO35qAG qm6S3nRK7N6Yc IWLjycvauwdmvWJ2XVGyM QOzeK96Nn7gfXvlOk5rSM YmEUU4ITMjxIJyY7HqqC1 yOiAjMDAwMDAw F9HuwJUiHUdiS643MEjfO iX6SELriwOmK3MpOYHudS paKrR3w9R9Ly3BWWf7LA5 3YV53tCMvu8A2 bDR5X3KlFNIrrcztvcucn TW5UHRhXSDknT92Td9uoE goNm9mSPPaUKG6ZVRfxTB vH9LsjS9qJwNk QQXrMUBjF2BjzGYaAOstS 223RYumNfC2XIOlkdSnK4 LqNCHweYbwXrL6e6X2Te3 XRSPpDJ23PJV8 uZE3XL58JW86V2VaSsddu GFibGU+PHRhYmxlIHdpZH RoPScxMDAlJyBzdHlsZT0 qPf8mRKVuSXTb sKscoUHuNjMov5etPOObL VtmMH8pnPidR9AzpXK7GN Iwr7g1St00T84vI1IslMA +CYGglCZ0dJQ8 zU2zFzNnPuA4LWasG046V wRemOHrXzmrv7lzz6sdkW s6VtF7UEJlphHpiGseQBG 3z4VqDv89T94x IHdpZHRoPSIxNSUiIHZhb Ltigr1mfP1cGz8+PGNvbC G9nFH5dD1oCmDjEeK8PXh nQ740YyDcxFLp Pabuf7lxi4eknJz8FaCzI PQunyAleGuoSNF4p6ZnOr 74N8UojRjvv6BgWik7cf9 6nLEzd9A6wPH4 G1GnEQEpuigzbUVdeOvkM Y2qTGVibrpwTYIvfO8rQR DpH5a5WlNsLaW7GTaxW4C wvtH2IUEseGHi LEbbMZJ4G26ai9H7JIEnP ZVvZMD0nSK6dH2tmNursn ogbGVmdDsgdmVydGljYWw pBKqcG879FIWt kLgwGAQwuX2wFCEhlKPzp BjtEA4sSISygvxjHt1RIE ZUIBMACR6PQYCHEdUSAF4 0CO94oOWhn3F2 oVE5K3WzWMSatpymtwqok GH7VQZcVAIphO10qRUaPU yzHt0xf5E8t729XTXgXDH gcT43Ky3cmSxu MWIvtTXTuB4xizdrk6mvn aaoVcBrJAGdDPe7VOw7JC PjgVhxNaZsANU8GxG2QYW 3aBWrgH2pwKkg dhzexJ1iLdj+MDkvMTcvM Up4XtltiUH+HLXlPWR4yB heVHhiZJVwpL7lLWIjE8a 6AjXiDyZ9ZCih Z3PwKHDwlazgZp76cF1lO aZiDgG2ZGgxG5PkusY6YD MvlGGuBKziVOK7Y09bq7V 6LARxCQZgLLK8 uAZ4yV5emDcctjrdwLEom DsgdmVydGljYWwtYWxpZ2 73LJCvlTgoEoG9RMwvOXH yYC93IO57rPKw z4S4aHH3G7TuOXEsgeibl gyopWA0FBUdVSRrvW29jL MgYObhAz5kq5L7r149SOS dWVHpcC37Yk8k sVisNAJyoVJUxR2boywuq 9urpupsUcEeILJjELe3WM h7DCZspFrxRdGpWYA0AxR 6NYD2yQRwvO2c cDqucxgkvC8bTqk+RmVtY JycWR19UT85wREde2A9gX I0I1ZoFIRlakpiqqwtlDC 4FUNhTXJqdV52 iRKfHExrEa4za3D8a531E BLgHNDokM96Ew4yiJgrWL YheUUJjI8obdotd2yvqat gIzAwMDAwMDt0 QWf0ITXlsMkiRuMzAOD6O sF4HNX1fCEkaU2fhLjxcn nhjC4jAnm+P9Y1sNO4iVO udDwvdGQ+PC90 nl08I4McEbhgNkd7TPTiX ZH1dSB1sC8iJHRqTSpaf1 E5nMW5C0LhzkZojg9ye0p rGKCdUTswJ27z cWZgo9R0ASDnmCB5QIFnb TibXsJlrW01Gxv+PGNvbG rff4IrGxbbd9xzg4rpdPo 9IjMwJSIgdmFs hJypIQN0n2IuGr85Y47oI HdpZHRoPSIzMCUiIHZhbG mvsj8acZ9mOv6+PGNvbCB 5wQL9rY1xQbKs AeX1KCrlH941TyJarEImV zpzo7ivz5aiiRb3XhMoFL TobhPywNbtHQI2r9YmDz1 0H5UgtTtsy5Hz Zcv5we87vCGww9H4fHY5A 3BhZGRpbmctbGVmdDogMC 6oLDCxacrfCNXjpI1mUAA yJ5u1UqSyZnI1 MDmbP6PzghF7MOEemHHhR NSsmMHUyM6iipfgy9rlmu qmSwFuTUUqDTd0IYx6LUN saWduOiBsZWZ0 AsN8AAM4mICbeM6yyYygc ysobJ6dJob+XFx3a5cvjY MtHR4hpJH7NV45TT31zPK ki8J2sUZ4L2Sk QHZtuphwaemeqZW8GYBcE UAuqN72Pd9jzUejSq3bSW ZcREO2QLYraINsA0WhbN7 yOiAjMDAwMDAw V7ErnKReCBkgT687NHpvO eA1WKUcogYbM7QwAOQprD ufElG1r6M3Tg1LVR36QN9 5ED03sZAht2O4 eMH5W3MsRUMphatudhily ZW1JCCeDJEtmC22Gv0baT fuCe6oWONsSUU8WKWmtJY oQ5NilR2zPaWl AKAdNANqY4IuuXDwQFluN 775GDciCuQ9OCZjssFmI9 EpDBEkoSlmMaY1p5J4Nh5 GQs17QI47RV67 bIBml9W7dIR5E0UsNIKij bvpsbktyLL3PESjUULghJ 43Xy9cxHusFp0sXANdRYI 5CRLwgHLnZ7Zm uI8wBaYbJCWvBKQxA1Sfe JKbTAeiU279XAnqEjN0ZH GzyzBbK6QzLWMaaJybZfX 0a8V0Ul1ODTum ede2N2ZwOknsaPL+PC90Y TMqAT95xRKzkJXkh4hbaT k9SuLnBFKkDKJ1dAwiWNl ek0HrYVQnT80r bGFw (more content not included)... Normal [facility] HIV Screen 4th Generation wR fxon 09-12-2021 HIV 1+2 Ab+HIV1 p24 Ag IA Ql Non-Reactive Invalid Interpretation Code Non Reactive [facility] Comment on above: Result Comment: HIV Negative HIV-1/HIV-2 antibodies and HIV-1 p24 antigen were NOT detected. There is no laboratory evidence of HIV infection. Performed at: [address] [id number] PhD Noemi Johnston Performed By: #### 1 [id number] #### [facility] [address] [place] [address] Hep Bs Agon 09-12-2021 HBV surface Ag IA Ql Negative Invalid Interpretation Code Negative [facility] Comment on above: Result Comment: Perf ormed at: [address] [id number] PhD Noemi Johnston Performed By: #### 1 [id number] #### [facility] [address] [place] [address] RPR with Conf Rfxon 09-13-19 Reagin Ab RPR Ql (S) Non-Reactive Invalid Interpretation Code Non Reactive [facility] Comment on above: Result Comment: Perf ormed at: [address] [id number] PhD Noemi Johnston Performed By: #### 1 [id number] #### [facility] [address] [place] [address] Consent for Treatmenton 08-23 Consent for Treatment [id number]:127 Normal [facility] Physician Orderon 09-11-2021 Physician Order [id number]# 1.00CD:127 Normal [facility] CULTURE URINEon 09-05-2021 CULTURE URINE Isolate 1 Escherichia coli >100,000 cfu/mL of ORGANISM 1 Escherichia coli ANTIBIOTIC M.I.C RX STATUS Ampicillin >=32 R F Ampicillin/Sulbactam >=32 R F Piperacillin/Tazobact am <=4 S F Cefazolin 16 I F Ceftazidime <=1 S F Ceftriaxone <=1 S F Ertapenem <=0.5 S F Imipenem <=0.25 S F Amikacin <=2 S F Gentamicin <=1 S F Tobramycin <=1 S F Ciprofloxacin <=0.25 S F Levofloxacin <=0.12 S F Nitrofurantoin <=16 S F Trimethoprim/Sulfamet hoxazole >=320 R F Normal [facility] Comment on above: Performed By: #### E MEY FINN #### [facility] [address] [place], [place] [address] ABD/PELVIS WO CONon [...] nonspecific finding although favored to represent an infectious/inflammato ry process in setting of mild diffuse bladder [...] MAGNOLIA DUMONT Date: 2021-09-02 22:35 Normal [facility] CBC AUTO DIFFon 09-02-2021 BASO # 0.0 103/ul Normal 0.0-0.1 [facility] Comment on above: Performed By: #### C BC #### [facility] [address] [place] [address] Dr. Dariana Hall Basophils/100 WBC (Bld) 0.3 % Normal 0.2-2.0 [facility] Comment on above: Performed By: #### C BC #### [facility] [address] [place] [address] Dr. Dariana Hall EO # 0.0 103/ul Normal 0.0-0.7 [facility] Comment on above: Performed By: #### C BC #### [facility] [address] [place] [address] Dr. Dariana Hall Eosinophils/100 WBC (Bld) 0.1 % Critically low 0.9-7.0 [facility] Comment on above: Performed By: #### C BC #### [facility] [address] [place] [address] Dr. Dariana Hall Erythrocyte distribution width (RBC) [Ratio] 11.7 % Normal 11.0-15.0 [facility] Comment on above: Performed By: #### C BC #### [facility] [address] [place] [address] Dr. Dariana Hall Hematocrit (Bld) [Volume fraction] 38.4 % Normal 36.0-48.0 [facility] Comment on above: Performed By: #### C BC #### [facility] [address] [place] [address] Dr. Dariana Hall Hemoglobin (Bld) [Mass/Vol] 13.2 g/dL Normal 12.0-16.0 [facility] Comment on above: Performed By: #### C BC #### [facility] [address] [place] [address] Dr. Dariana Hall IG # 0.02 10e3/ul Normal 0.00-0.03 [facility] Comment on above: Performed By: #### C BC #### [facility] [address] [place] [address] Dr. Dariana Hall IG % 0.2 % Normal 0.0-0.5 [facility] Comment on above: Performed By: #### C BC #### [facility] [address] [place] [address] Dr. Dariana Hall LYMPH # 2.0 103/ul Normal 1.2-3.8 [facility] Comment on above: Performed By: #### C BC #### [facility] [address] [place] [address] Dr. Dariana Hall Lymphocytes/100 WBC (Bld) 21.8 % Normal 20.5-60.0 [facility] Comment on above: Performed By: #### C BC #### [facility] [address] [place] [address] Dr. Dariana Hall MANUAL DIFF REQ NO Normal [facility] Comment on above: Performed By: #### C BC #### [facility] [address] [place] [address] Dr. Dariana Hall MCH (RBC) [Entitic mass] 34.6 pg Critically high 26.7-34.0 [facility] Comment on above: Performed By: #### C BC #### [facility] [address] [place] [address] Dr. Dariana Hall MCHC (RBC) [Mass/Vol] 34.4 g/dL Normal 29.9-35.2 [facility] Comment on above: Performed By: #### C BC #### [facility] [address] [place] [address] Dr. Dariana Hall MCV (RBC) [Entitic vol] 100.8 fL Critically high 81.0-99.0 [facility] Comment on above: Performed By: #### C BC #### [facility] [address] [place] [address] Dr. Dariana Hall MONO # 1.2 103/ul Critically high 0.3-0.8 [facility] Comment on above: Performed By: #### C BC #### [facility] [address] [place] [address] Dr. Dariana Hall Monocytes/100 WBC (Bld) 13.1 % Critically high 1.7-12.0 [facility] Comment on above: Performed By: #### C BC #### [facility] [address] [place] [address] Dr. Dariana Hall NEUT # 5.8 103/ul Normal 1.4-6.5 [facility] Comment on above: Performed By: #### C BC #### [facility] [address] [place] [address] Dr. Dariana Hall Neutrophils/100 WBC (Bld) 64.5 % Normal 43.0-75.0 [facility] Comment on above: Performed By: #### C BC #### [facility] [address] [place] [address] Dr. Dariana Hall Platelet mean volume (Bld) [Entitic vol] 10.6 fL Normal 9.5-13.5 [facility] Comment on above: Performed By: #### C BC #### [facility] [address] [place] [address] Dr. Dariana Hall PLT 257 103/ul Normal 150-450 [facility] Comment on above: Performed By: #### C BC #### [facility] [address] [place], [place] [id number] Dr. Dariana Hall RBC 3.81 106/ul Critically low 4.20-5.40 [facility] Comment on above: Performed By: #### C BC #### [facility] [address] [place] [address] Dr. Dariana Hall WBC 9.1 103/ul Normal 4.0-11.0 [facility] Comment on above: Performed By: #### C BC #### [facility] [address] [address] [address] Dariana Hall ER URINE PROFILEon 2 Bilirubin Ql (U) Negative Normal NEGATIVE [facility] Comment on above: Performed By: #### Keshia FINN UMICRO #### [facility] [address] [address] [address] Dariana Hall Clarity (U) CLOUDY Abnormal CLEAR [facility] Comment on above: Performed By: #### Keshia FINN UMICRO #### [facility] [address] [address] [address] Dariana Hall Color (U) LT. YELLOW Normal YELLOW [facility] Comment on above: Performed By: #### Keshia FINN UMICRO #### [facility] [address] [place] [address] Dr. Dariana GARCIA A micrscopic examination will be performed if indicated. Normal [facility] Comment on above: Performed By: #### Keshia FINN UMICRO #### [facility] [address] [address] [address] Dariana Hall Glucose Ql (U) 500 mg/dl Abnormal NEGATIVE [facility] Comment on above: Performed By: #### Keshia FINN UMICRO #### [facility] [address] [address] [address] Dariana Hall Hemoglobin Ql (U) SMALL Abnormal NEGATIVE [facility] Comment on above: Performed By: #### Keshia FINN UMICRO #### [facility] [address] [address] [address] Dariana Hall Ketones Ql (U) 15 mg/dl Abnormal NEGATIVE [facility] Comment on above: Performed By: #### Keshia FINN UMICRO #### [facility] [address] [address] [address] Dariana Hall LEUKOCYTES LARGE Abnormal NEGATIVE [facility] Comment on above: Performed By: #### Keshia FINN UMICRO #### [facility] [address] [place] [address] Dr. Dariana Hall Nitrite Ql (U) Negative Normal NEGATIVE [facility] Comment on above: Performed By: #### MEY WALTERS #### [facility] [address] [place] [address] Dr. Dariana Hall pH (U) 6.0 [pH] Normal 5-9 [facility] Comment on above: Performed By: #### MEY WALTERS #### [facility] [address] [place] [address] Dr. Dariana Hall SPEC GRAVITY <=1.005 Abnormal 1.005-<=1.025 [facility] Comment on above: Performed By: #### MEY WALTERS #### [facility] [address] [place] [address] Dr. Dariana Hall UA PROTEIN Negative Normal NEGATIVE/ TRACE [facility] Comment on above: Performed By: #### MEY WALTERS #### [facility] [address] [place] [address] Dr. Dariana Hall UR MICRO IND INDICATED Normal [facility] Comment on above: Performed By: #### MEY WALTERS #### [facility] [address] [place] [address] Dr. Dariana Hall Urobilinogen Qn (U) 0.2 {Deandre'U}/dL Normal 0.2 - 1. 0 [facility] Comment on above: Performed By: #### RUSSELL WALTERSRO #### [facility] [address] [place] [address] Dr. Dariana Hall POINT OF CARE GLUCOSEon 08-22 Glucose [Mass/Vol] 187 mg/dL Critically high 74-106 T [facility] Comment on above: Performed By: #### P OCGLUC #### [facility] [address] [place] [address] Dr. Dariana Hall PROF 14(COMP METB)on 022 Albumin [Mass/Vol] 3.2 g/dL Critically low 3.4-5.0 [facility] Comment on above: Performed By: #### Keshia FINN, UMICRO #### [facility] [address] [address] [address] Dariana Hall Albumin/Globulin [Mass ratio] 0.8 {ratio} Normal [facility] Comment on above: Performed By: #### Keshia FINN, UMICRO #### [facility] [address] [address] [address] Dariana Hall ALP [Catalytic activity/Vol] 117 U/L Critically high 46-116 [facility] Comment on above: Performed By: #### Keshia FINN, UMICRO #### [facility] [address] [address] [address] Dariana Hall ALT [Catalytic activity/Vol] 21 U/L Normal 14-59 [facility] Comment on above: Performed By: #### Keshia FINN, UMICRO #### [facility] [address] [address] [address] Dariana Hall Anion gap [Moles/Vol] 11.7 mmol/L Normal [facility] Comment on above: Performed By: #### Keshia FINN, UMICRO #### [facility] [address] [address] [address] Dariana Hall AST [Catalytic activity/Vol] 14 U/L Critically low 15-37 [facility] Comment on above: Performed By: #### Keshia FINN, UMICRO #### [facility] [address] [address] [address] Dariana Hall Bilirubin [Mass/Vol] 0.8 mg/dL Normal 0.2-1.0 [facility] Comment on above: Performed By: #### Keshia FINN, UMICRO #### [facility] [address] [address] [address] Dariana Hall Calcium [Mass/Vol] 9.2 mg/dL Normal 8.5-10.1 [facility] Comment on above: Performed By: #### Keshia FINN, UMICRO #### [facility] [address] [address] [address] Dariana Hall Chloride [Moles/Vol] 97 mmol/L Critically low 98-107 [facility] Comment on above: Performed By: #### MEY WALTERS #### [facility] [address] [place] [address] Dr. Dariana Hall CO2 [Moles/Vol] 30.0 mmol/L Normal 21.0-32.0 [facility] Comment on above: Performed By: #### MEY WALTERS #### [facility] [address] [place] [address] Dr. Dariana Hall Creatinine [Mass/Vol] 0.57 mg/dL Normal 0.55-1.02 [facility] Comment on above: Performed By: #### MEY WALTERS #### [facility] [address] [place] [address] Dr. Dariana Hall EGFR-AF PRYDEINIG >60 Normal >=60 [facility] Comment on above: Performed By: #### MEY WALTERS #### [facility] [address] [place] [address] Dr. Dariana Hall EGFR-NON AF PRYDEINIG >60 Normal >=60 [facility] Comment on above: Performed By: #### MEY WALTERS #### [facility] [address] [place] [address] Dr. Dariana Hall Globulin (S) [Mass/Vol] 3.8 g/dL Normal [facility] Comment on above: Performed By: #### MEY WALTERS #### [facility] [address] [place] [address] Dr. Dariana Hall Glucose [Mass/Vol] 179 mg/dL Critically high 74-106 T [facility] Comment on above: Performed By: #### MEY WALTERS #### [facility] [address] [place] [address] Dr. Dariana Hlal Potassium [Moles/Vol] 3.7 mmol/L Normal 3.5-5.1 [facility] Comment on above: Performed By: #### MEY WALTERS #### [facility] [address] [place] [address] Dr. Dariana Hall Protein [Mass/Vol] 7.0 g/dL Normal 6.4-8.2 [facility] Comment on above: Performed By: #### RUSSELL WALTERSRO #### [facility] [address] [place] [address] Dr. Dariana Hall Sodium [Moles/Vol] 135 mmol/L Critically low 136-145 Th [facility] Comment on above: Performed By: #### UNIQUE WALTERSICRO #### [facility] [address] [place] [address] Dr. Dariana Hall Urea nitrogen [Mass/Vol] 10.0 mg/dL Normal 7.0-18.0 [facility] Comment on above: Performed By: #### UNIQUE WALTERSICRO #### [facility] [address] [place] [address] Dr. Dariana Hall Urea nitrogen/Creatinine [Mass ratio] 17.5 mg/mg Normal [facility] Comment on above: Performed By: #### Keshia FINN UMICRO #### [facility] [address] [place] [address] Dr. Dariana Hall URINE MICROSCOPIC ONLYon BACTERIA TRACE Abnormal NONE SEEN [facility] Comment on above: Performed By: #### Keshia FINN UMICRO #### [facility] [address] [place] [address] Dr. Dariana Hall Bacteria identified Cx Nom (U) INDICATED Normal [facility] Comment on above: Performed By: #### UNIQUE WALTERSICRO #### [facility] [address] [place] [address] Dr. Dariana Hall CAST NONE SEEN Normal NONE SEEN [facility] Comment on above: Performed By: #### UNIQUE WALTERSICRO #### [facility] [address] [place] [address] Dr. Dariana Hall Crystals LM Nom (Urine sed) NONE SEEN Normal NONE SEEN [facility] Comment on above: Performed By: #### RUSSELL WALTERSRO #### [facility] [address] [place] [address] Dr. Dariana Hall Epithelial cells LM Ql (Urine sed) RARE Normal NONE SEEN /RARE [facility] Comment on above: Performed By: #### E RUR, UMICRO #### [facility] [address] [place] [address] Dr. Dariana Hall MUCOUS NONE SEEN Normal NONE SEEN [facility] Comment on above: Performed By: #### E RUR, UMICRO #### [facility] [address] [place] [address] Dr. Dariana Hall RBC 2-5 Abnormal 0-2 [facility] Comment on above: Performed By: #### E HUMA, UMICRO #### [facility] [address] [place] [address] Dr. Dariana Hall WBC (U) [#/Vol] /uL Abnormal NONE SEEN [facility] Comment on above: Performed By: #### Keshia MAZARIEGOSR, UMICRO #### [facility] [address] [place] [address] Dr. Dariana Hall Vital Signs Date Time Vital Sign Value Performing Clinician Faci lity 04-08-2023 11:19-0500 Body height 158.8 cm Odilia Rubio RESIDENTIAL FRAMING CARPENTER Work Phone: [facility] 04-08-2023 11:19-0500 Body mass index (BMI) [Ratio] 22.5 kg/m2 Odilia Rubio RESIDENTIAL FRAMING CARPENTER Work Phone: [facility] 04-08-2023 11:19-0500 Body weight 56.7 kg Odilia Rubio RESIDENTIAL FRAMING CARPENTER Work Phone: [facility] 04-08-2023 11:19-0500 Diastolic blood pressure 70 mm[Hg] Odilia Rubio RESIDENTIAL FRAMING CARPENTER Work Phone: [facility] 04-08-2023 11:19-0500 Systolic blood pressure 118 mm[Hg] Odilia Rubio RESIDENTIAL FRAMING CARPENTER Work Phone: [facility] 01-27-2023 13:39-0500 Blood Pressure Location Wei RAMOS [facility] 01-27-2023 13:39-0500 Diastolic blood pressure 70 mm[Hg] Wei RAMOS [facility] 01-27-2023 13:39-0500 Heart rate 70 /min Wei LATIFL [facility] [place] 01-27-2023 13:39-0500 Respiratory rate 16 /min Wei RAMOS [facility] [place] 01-27-2023 13:39-0500 Systolic blood pressure 116 mm[Hg] Wei LATIFL [facility] [place] Encounters Encounter Date Encounter Type Care Provider Facility Start: 08-23-2023 End: 08-23-2023 ambulatory [facility] Start: 06-26-2023 End: 06-26-2023 ambulatory CELENA Nohemy PINEDA Not Available Start: 06-16-2023 End: 06-16-2023 ambulatory AYDEN YOON Not Available Start: 04-09-2023 End: 04-09-2023 ambulatory KAREN A FELTER Not Available Start: 04-08-2023 Bamboo flowsheet Odilia farah RESIDENTIAL FRAMING CARPENTER Work Phone: [facility] Start: 04-08-2023 Bamboo flowsheet Odilia farah RESIDENTIAL FRAMING CARPENTER Work Phone: [facility] Start: 04-08-2023 End: 04-08-2023 ambulatory ODILIA RUBIO Not Available Start: 04-08-2023 End: 04-08-2023 Office outpatient visit 15 minutes Odilia Rubio RESIDENTIAL FRAMING CARPENTER Work Phone: [facility] Comment on above: Dyspareunia in femal e (Primary Dx) Start: 04-01-2023 End: 04-01-2023 ambulatory KAREN A FELTER Not Available Start: 04-01-2023 End: 04-01-2023 Office outpatient new 30 minutes Karen A Felter DRILL PRESS TENDER-COMMERCIAL CONSTRUCTION SUPERINTENDENT Work Phone: [facility] Comment on above: Primary focal hyperh idrosis (Primary Dx); Neoplasm of unspecified behavior of bone, soft tissue, and skin Start: 03-30-2023 Telephone encounter Odilia Rubio RESIDENTIAL FRAMING CARPENTER Work Phone: [facility] Start: 03-02-2023 ambulatory DOUGLAS SHAMMO Facility:[facility] Start: 02-10-2023 End: 02-11-2023 ambulatory DOUGLAS SHAMMO Facility:CD:[id number] Start: 01-27-2023 End: 01-28-2023 ambulatory DOUGLAS SHAMMO Facility:[facility] Start: 01-27-2023 End: 01-27-2023 Patient encounter procedure Wei RAMOS [facility] Start: 01-19-2023 End: 01-19-2023 ambulatory PAPITO Jose CARRERA Not Available Start: 01-04-2023 End: 01-05-2023 ambulatory DOUGLAS SHAMMO Facility:[facility] Start: 12-29-2022 ambulatory DOUGLAS SHAMMO Facility:[facility] Start: 02-21-2022 End: 02-21-2022 ambulatory DOUGLAS SHAMMO Facility: Start: 12-24-2021 ambulatory DOUGLAS SHAMMO Facility:[facility] 1 Start: 12-04-2021 Encounter for genera l adult medical examination without abnormal findings [facility] Start: 12-02-2021 End: 12-03-2021 Encounter for general adult medical examination without abnormal findings [facility] Facility: Start: 12-02-2021 End: 12-03-2021 ambulatory [facility] Facility:[facility] Start: 11-24-2021 ambulatory Gregorio Dean Facility : [place] Start: 10-28-2021 End: 10-28-[address] SAJAN SANCHEZ Facility: Start: 09-11-2021 End: 09-12-2021 ambulatory Odilia RUBIO Facility:[facility] Start: 09-11-2021 End: 09-11-2021 Patient encounter procedure Odilia RUBIO [facility] Start: 09-02-2021 End: 09-03-[address] TONEY MOREL Facility:[facility] Procedures Date Procedure Procedure Detail Performing Clinician Start: 04-01-2023 SKIN / NAIL BIOPSY Dior Fortune DRILL PRESS TENDER-COMMERCIAL CONSTRUCTION SUPERINTENDENT Work Phone: Start: 11-07-2015 Right carpal tunnel release & mass removal right forearm. Odilia JOANNE Start: 02-22-2006 Colonoscopy Wei NI LL Abdominal hysterectomy Jamie ma NILL section Odilia Holcomb OFFMAN Comment on above: x 2 section Wei NIL L Cholecystectomy Odilia YESICA FFMAN Cholecystectomy Wei NILL Colonoscopy Wei NILL Decompression of med wei nerve Wei LATIFL H/O: tubal ligation Geraldine schmitt JOANNE Laparoscopy Odilia FOOTE Laparoscopy Wei RAMOS Partial hysterectomy Dick RUBIO Plan of Treatment Date Care Activity Detail Author Start: 04-09-2023 End: 04-09-2023 Patient encounter procedure 04/09/2023 11:30 AM EST Office Visit [facility] [address] [place] [address] Karen Fortune, DRILL PRESS TENDER-COMMERCIAL CONSTRUCTION SUPERINTENDENT [address] [place] [address] [facility] Start: 04-08-2023 End: 04-08-2023 Patient encounter procedure [facility] Comment on above: Arrived Dermatopathology exam Dermatopat hology exam Pathology and Cytology Timed Neoplasm of unspecified behavior of bone, soft tissue, and skin Release Upon Ordering for 1 Occurrences starting 04/01/2023 [facility] Work Phone: Comment on above: Release Upon Ordering for 1 Occurrences starting 04/01/2023 Immunizations Immunization Date Immunization Notes Care Provider Keron trinh 05-16-2011 tetanus toxoid, reduced diphtheria toxoid, and acellular pertussis vaccine, adsorbed Odilia RUBIO [facility] NEGATED: Highlighted row has not occurred!01-27-2023 influenza virus vaccine, unspecified formulation Wei RICHARD [facility] Payers Date Payer Category Payer Medicaid [employer] [place] [employer] [place] [id number] 2022-Present [address] [address] [place] [address] [id number] 2021 Self-pay 1970 Unknown [id number] 1972 Unknown [id number] [id number] 1972 Unknown [id number] 2.16.840.1.641827.3.579.2.593 1972 Unknown [id number] 2.16.840.1.580205.3.579.2.593 1972 Unknown [id number] 2.16.840.1.685089.3.579.2.593 1972 Unknown [id number] 2.16.840.1.688552.3.579.2.593 1972 Unknown [id number] 2.16.840.1.550934.3.579.2.593 1972 Unknown [id number] 2.16.840.1.980550.3.579.2.593 1972 Unknown [id number] 2.16.840.1.751916.3.579.2.727 1972 Unknown [id number] 2.16.840.1.039169.3.579.2.727 1972 Unknown [id number] 2.16.840.1.200438.3.579.2.727 1972 Unknown [id number] 2.16.840.1.460258.3.579.2.727 1972 Unknown [id number] 2.16.840.1.857551.3.579.2.1259 1972 Unknown [id number] 2.16.840.1.381333.3.579.2.1259 1972 Unknown [id number] 2.16.840.1.577813.3.579.2.9 1972 Unknown [id number] 2.16.840.1.478573.3.579.2.9 1972 Unknown [id number] 2.16.840.1.037633.3.579.2.1259 1972 Unknown [id number] [id number] 1957 Medicaid [id number] Social History Date Type Detail Facility Tobacco Current every da y smoker [facility] Comment on above: 1.5 ppd Start: 01-19-2023 End: 04-08-2023 Sex Assigned At Female [facility] Start: 01-27-2023 Tobacco smoking status Heavy t obacco smoker (finding) [facility] Tobacco smoking status Never [facility] [place] Tobacco smoking stat us [facility] Tobacco smoking consumption unknown [facility] Start: 1970 Sex Assigned At Not on file [facility] Start: 12-09-2022 End: 04-08-2023 Tobacco smoking status NHIS Smokes tobacco daily [facility] Start: 07-23-1986 History of tobacco use Cigarette Smo ker [facility] Start: 12-09-2022 End: 04-08-2023 Cigarettes smoked current (pack per day) - Reported 1 [facility] Start: 12-09-2022 End: 04-08-2023 Tobacco use and exposure Smokeless tobacco non-user [facility] Start: 01-19-2023 End: 04-08-2023 Alcohol intake Current drinker of alcohol (finding) [facility] Start: 1970 Sex Assigned At Female [facility] Start: 12-08-2022 Gender identity Identifies as female gender (finding) [facility] Start: 12-08-2022 Sexual orientation Heterosexual (fin ding) [facility] How often to you hav e a drink containing alcohol? Monthly or less [facility] How many standard drinks containing alcohol do you have on a typical day? 1 or 2 [facility] How often do you hav e 6 or more drinks on 1 occasion? Never [facility] Medical Equipment Procedure Code Equipment Code Equipment Origin al Text Equipment Identifier Dates DIRECTED WITH INSULIN INJECTION NIGHTLY [id number] Start: 01-27-2023 TEST BLOOD SUGAR S 3 TIMES A DAY*E10.9* [id number] Start: 11-12-2022 Functional Status Date Assessment Result Facility 01-27-2023 Functional Status N/A [facility] Clinical Notes 09-11-2021 to 08-23-2023 Odilia Rubio NP - 04/08/2023 11:20 AM ESTNatalikeshia Fortune APRN-ABBIE - 04/01/2023 11:20 AM ESTTelephone Marci - Erlin Bain - 03/31/2023 2:09 PM EST Note Date & Type Note Facility 08-23-2023 Note [facility] Subjective Jes Umanzor is a 52 y.o. year old female patient being seen to establish care. Ref from Dr. Levine for chest pain. Smokes 2 PPD. Says she hasn't been able to breath right since she had Covid in early 2019. Gets intermittent chest pain over her left boob area . Denies palpitations and lightheadedness/syncope. Patient Active Problem List Diagnosis Cannabis abuse Multiple pulmonary nodules Nicotine dependence, cigarettes, with unspecified nicotine-induced disorders Type 1 diabetes mellitus (CMS/HCC) Family History Problem Relation Name Age of Onset No Known Problems Mother No Known Problems Father Stroke Maternal Grandmother Diabetes Paternal Grandfather Social History Tobacco Use Smoking status: Every Day Packs/day: 2 Types: Cigarettes Smokeless tobacco: Never Substance Use Topics Alcohol use: Yes Comment: 4 beers daily HPI Jes is seen as a new patient referred from Dr. Levine's office for investigation of chest pain and shortness of breath. She is a 52-year-old woman with history of type 1 diabetes since age 11, currently maintained on insulin. She is a smoker since age 16 and currently smokes 2 packs a day. She reports that she has been having shortness of breath since getting COVID early 2019. She reports that shortness of breath happens at rest or with exertion. This has not changed over the past couple years. She has no lower extremity edema and no palpitations. Around 3 weeks ago she developed episodes of chest pain located in left side of the chest, with no radiation. The pain is described as deep sensation in chest. It resolved spontaneously. It happened over. If 2 days but no recurrence since then. Of note, prior investigation including PFTs and chest x-ray were within normal limits. She is noted to have aspirin allergy. Of note she reports that she did take aspirin 15 years ago without any issues. However the aspirin allergy stems from having had a rash while she took it along with penicillin as a child. Review of Systems Cardiovascular: Positive for chest pain and dyspnea on exertion. Respiratory: Positive for shortness of breath. All other systems reviewed and are negative. Objective Visit Vitals BP 138/88 (BP Location: Right arm, Patient Position: Sitting) Pulse 103 Ht 1.588 m (5' 2.5 ) Wt 55.3 kg (122 lb) SpO2 96% BMI 21.96 kg/m??? Smoking Status Every Day BSA 1.56 m??? Physical Exam Constitutional: Appearance: She is well-developed. She is not ill-appearing. HENT: Head: Normocephalic and atraumatic. Nose: Nose normal. Eyes: General: No scleral icterus. Pupils: Pupils are equal, round, and reactive to light. Neck: Thyroid: No thyromegaly. Vascular: No JVD. Cardiovascular: Rate and Rhythm: Normal rate and regular rhythm. Pulses: Radial pulses are 2+ on the right side and 2+ on the left side. Posterior tibial pulses are 2+ on the right side and 2+ on the left side. Heart sounds: Normal heart sounds. No murmur heard. No friction rub. No gallop. Pulmonary: Effort: Pulmonary effort is normal. No respiratory distress. Breath sounds: Normal breath sounds. No wheezing or rales. Chest: Chest wall: No tenderness. Abdominal: General: Bowel sounds are normal. There is no distension. Palpations: Abdomen is soft. Tenderness: There is no abdominal tenderness. Musculoskeletal: General: No swelling. Cervical back: Neck supple. Skin: General: Skin is warm and dry. Neurological: General: No focal deficit present. Mental Status: She is alert and oriented to person, place, and time. Psychiatric: Mood and Affect: Mood normal. Behavior: Behavior is cooperative. Judgment: Judgment normal. Allergies Allergies Allergen Reactions Aspirin Rash Other Reaction(s): Unknown Hydrocodone-Acetaminophen Rash Other Reaction(s): hives, Itching of skin Penicillin Rash Medications Current Outpatient Medications: cetirizine (ZyrTEC) 10 mg tablet, Take 10 mg by mouth in the morning., Disp: , Rfl: cholecalciferol (Vitamin D-3) 50 MCG (1999 UT) tablet, 1 (one) time each day at the same time., Disp: , Rfl: insulin aspart (NovoLOG U-100 Insulin aspart) 100 unit/mL injection vial, as directed Injection, Disp: , Rfl: insulin glargine (Lantus U-100 Insulin) 100 unit/mL injection vial, as directed Subcutaneous, Disp: , Rfl: amLODIPine (Norvasc) 2.5 mg tablet, Take 1 tablet (2.5 mg) by mouth in the morning., Disp: 90 tablet, Rfl: 3 clopidogrel (Plavix) 75 mg tablet, Take 1 tablet (75 mg) by mouth in the morning., Disp: 90 tablet, Rfl: 3 metoprolol succinate XL (Toprol-XL) 25 mg 24 hr tablet, Take 1 tablet (25 mg) by mouth in the morning. Do not crush or chew., Disp: 90 tablet, Rfl: 3 Recent Labs Blood testing 12/29/2022: Hemoglobin 13.8, platelets 243, potassium 4.5, BUN 12, creatinine 0.59, EGFR more than 60, LFTs normal, triglycerides 10 (more content not included)... [facility] 04-08-2023 History of Presen t illness Narrative Name: Jes Umanzor Date/Time of Service:04/08/2023 11:42 AM :1970 Age: 52 y.o. No chief complaint on file. SUBJECTIVE: History of Present Illness Jes Umanzor is a 52 y.o. here to discuss painful intercourse. She was 3 years ago, did not have painful sex. She was with someone who was well endowed and it was painful- thought it was . Got with someone else and it is still painful. It is painful at the beginning, all the way in. One time she had some blood after intercourse. She does not have vaginal dryness, does not need lubrication. It feels the carlos are stretching with penetration. Denies vaginal discharge, itching, or odor. Denies need for STD testing had done 5 months ago after unfaithful partner. Had hysterectomy after child d/t enlarged uterus with prolapse, age 28. Over the summer was treated for trichomoniasis. Past Medical History: Diagnosis Date Anxiety Arthritis Depression (CMS/HCC) Diabetes (CMS/[facility]) Review of Systems All others negative except those mentioned in HPI. Past Medical / Surgical History Past Medical History: Diagnosis Date Anxiety Arthritis Depression (CMS/HCC) Diabetes (CMS/HCC) Past Surgical History: Procedure Laterality Date CARPAL TUNNEL RELEASE SECTION, LOW TRANSVERSE 2000 CHOLECYSTECTOMY 2008 HYSTERECTOMY 2003 PELVIC LAPAROSCOPY 1997 TONSILLECTOMY Family History Family History Problem Relation Name Age of Onset Depression Father Social History reports that she has been smoking cigarettes. She has never used smokeless tobacco. She reports current alcohol use. She reports that she does not use drugs. Vitals: 04/08/23 1119 BP: 118/70 MEDICATIONS: Current Outpatient Medications on File Prior to Visit Medication Sig Dispense Refill B-D UF III MINI PEN NEEDLES 31G X 5 MM misc DIRECTED WITH INSULIN INJECTION NIGHTLY Continuous Blood Gluc Material Flow Analyst (Dexcom G6 juvenile justice officer) device Continuous Blood Gluc Sensor (Dexcom G7 Sensor) misc PLACE 1 SENSOR THEN CHANGE EVERY 10 DAYS Continuous Blood Gluc Transmit (Dexcom G6 transmitter) misc CHANGE EVERY 90 DAYS. Gvoke HypoPen 2-Pack 1 MG/0.2ML injection INJECT 1 MG SUBCUTANEOUSLY ONE TIME Lantus SoloStar 100 UNIT/ML pen INJECT 15 UNITS DAILY DIRECTED OneTouch Ultra test strip TEST BLOOD SUGARS 3 TIMES A DAY*E10.9* cholecalciferol (Vitamin D3) 10 MCG/ML liquid as directed Orally NovoLOG FLEXPEN 100 UNIT/ML pen INJECT 1 UNIT/10 CARBS SUBCUTANEOUSLY DAILY *MAX 25 UNITS PER DAY* No current facility-administered medications on file prior to visit. Allergies Allergen Reactions Aspirin Other Reaction(s): Unknown Hydrocodone-Acetaminophen Other Reaction(s): hives, Itching of skin Penicillin G Other Reaction(s): Unknown, Unknown cause PHYSICAL EXAM: Vitals: 04/08/23 1119 BP: 118/70 Body mass index is 22.5 kg/m . Physical Exam Constitutional: Appearance: Normal appearance. HENT: Head: Normocephalic. Eyes: Extraocular Movements: Extraocular movements intact. Conjunctiva/sclera: Conjunctivae normal. Pulmonary: Effort: Pulmonary effort is normal. Neurological: Mental Status: She is alert and oriented to person, place, and time. Skin: General: Skin is warm and dry. Psychiatric: Mood and Affect: Mood normal. Behavior: Behavior normal. Genitourinary External genitalia: normal, no discharge present, no erythema, no lesions Vagina: normal appearance, normal pink color, smooth rugae pattern, no abnormal discharge, no lesions, no masses present Bladder: no bladder distention Cervix and uterus surgically absent. ASSESSMENT / PLAN Plan for estrace cream nightly x2 wks, then 2-3 nights per week maintenance dose. Diagnosis Plan 1. Dyspareunia in female estradiol (Estrace) 0.1 MG/GM vaginal cream No follow-ups on file. documented in this encounter [facility] 04-01-2023 History of Presen t illness Narrative Images from the original note were not included. Rash Location: chest, arms Duration: years Quality: denies itch, denies burning Associated symptoms: just there New patient Other Problem: excessive sweating /odor Location: axillas Duration: months Current treatment: nothing work going through menopause All pertinent medical history, medications, and allergies were reviewed. General Exam: alert , oriented to person, place, and time , normal affect, well appearing Unaccompanied A focused exam completed based on patient reported problems, see below: 1. Primary focal hyperhidrosis (2) Left Axilla, Right Axilla Excessive sweating Denies loss of appetite or weight loss. Counseled on prescribed medication Related Medications aluminum chloride (Drysol) 20 % external solution Apply to clean, dry skin, once daily, at bedtime. Do not apply to broken or freshly shaven skin. 30 day supply 2. Neoplasm of unspecified behavior of bone, soft tissue, and skin Left Shoulder - Anterior Erythematous patch Lesion biopsy Type of biopsy: punch Informed consent: discussed and consent obtained Informed consent comment: The risks and benefits were discussed. Risks include, but are not limited to, bleeding, infection, scarring, pain, & nerve damage. An opportunity to ask questions prior to the procedure was permitted and questions were answered. Patient was prepped and draped in usual sterile fashion: Area cleansed with alcohol. Anesthesia: the lesion was anesthetized in a standard fashion Anesthetic: 1% lidocaine w/ epinephrine 1-100,000 buffered w/ 8.4% NaHCO3 Punch size: 3 mm (A biopsy by punch method was performed using a dermal punch) Suture size: 4-0 Suture type: nylon Suture type comment: Hemostasis was achieved with suture. Hemostasis achieved with: suture Outcome: patient tolerated procedure well Post-procedure details: sterile dressing applied and wound care instructions given Post-procedure details comment: Emphasized the need to contact clinic for any signs of infection, uncontrollable bleeding, or complications. Dressing type: bandage Additional details: Amount of lidocaine used: 0.5 cc Number of sutures used: 2 Specimen sent for: H&E or DIF Photo taken yes Specimen A - Dermatopathology exam Differential Diagnosis: Dermatomyositis vs Polymorphic light eruption vs other Check Margins: No Next Visit: &-10 day S/R documented in this encounter [facility] 03-31-2023 Telephone encounter Note Pt scheduled for 04/08 [facility] 03-31-2023 Miscellaneous Notes Pt scheduled for 04/08 She would need appt for that. PT called and stated that she had a yearly pap with Douglas Ravi [employer]. She states that she has pain with intercourse and would like to know if you can send something to [facility] for that? documented in this encounter [facility] 03-30-2023 Telephone encounter Note She would need appt for that. [facility] Work Phone: 03-30-2023 Telephone encounter Note PT called and stated that she had a yearly pap with Douglas Ravi [employer]. She states that she has pain with intercourse and would like to know if you can send something to [facility] for that? [facility] 01-27-2023 Note Chief Complaint consultation for colonoscopy HPI Staff 52 year old female presents on consultation from [facility] for screening colonoscopy. Denies abdominal or rectal [...] vaccine, inactivated - Not Given Patient Refuses [facility] Comment on above: Result Comment: Elec tronically Signed By: RICHARD BUCKLEY, Wei Spaulding\shon\Date and Time Signed: 01/27/23 14:06 EST 09-11-2021 Evaluation + Plan note Diagnostic Tests PendingHepatitis B Surface Antigen 09/11/21RPR with Conf Rfx 09/11/21HIV Screen 4th Generation wRfx 09/11/21 [facility] Evaluation note Diagnosis Primary focal hyperhidrosis- Primary Neoplasm of unspecified behavior of bone, soft tissue, and skin [facility] Diagnosis Dyspareunia in female- Primary [facility] N[facility]ative No data available for this section [facility] No data available for this section [facility] No data available for this section [facility] Summary Purpose Family History No Family History Records FoundNo Family History Records FoundNo Family History Records Found No data available for this section No Family History Records FoundNo Family History Records FoundNo Family History Records FoundNo Family History Records Found Advance Directives No Advanced Directives Records FoundNo Advanced Directives Records FoundNo Advanced Directives Records FoundNo Advanced Directives Records FoundNo Advanced Directives Records FoundNo Advanced Directives Records FoundNo Advanced Directives Records Found Additional Source Comments Care Team (unrecognized sect ion and content) Integration Solution Architect Relationship Specialty Start Date End Date Douglas Ravi MD [address] [place] [id number] Primary Care Provider Internal Medicine 12/09/22 Integration Solution Architect Relationship Specialty Start Date End Date Jd Rosas MD [address] [place] [id number] PCP - General Family Medicine 04/08/23 Integration Solution Architect Relationship Specialty Start Date End Date Jd Rosas MD [address] [place] [facility] [place] [id number] PCP - General Family Medicine 04/08/23 INFORMATION SOURCE (unrecogn ized section and content) DATE CREATED AUTHOR 09/25/2021 [facility] dical Specialist DATE CREATED AUTHOR AUTHOR'S ORGANIZ ATION 11/24/2021 [facility] DATE CREATED AUTHOR AUTHOR'S ORGANIZ ATION 02/24/2022 [facility] pital DATE CREATED AUTHOR AUTHOR'S ORGANIZ ATION 02/26/2023 [facility] DATE CREATED AUTHOR AUTHOR'S ORGANIZ ATION 04/11/2023 [facility] dical Specialists EPIC DATE CREATED AUTHOR AUTHOR'S ORGANIZ ATION 06/27/2023 [facility] dical Specialists EPIC DATE CREATED AUTHOR AUTHOR'S ORGANIZ ATION 08/23/2023 [facility] Reason for Visit (unrecogniz ed section and content) Reason Comments Rash FOR RECORDS PERTAINING TO PATIENTS WHO ARE [...] BE BASED ON THE PRIMARY CLINICAL RECORDS. [facility] [employer] [facility]. provides no warranty or guarantee of the accuracy or completeness of information in this document.
--- NOTE | 2023-09-29 07:05 | NM_ITS ---
Patient Name: KERLINE SANDERS MR#: [id number] : 1970 Exam Date: 09/29/2023 Ordering Doctor: DR BUDDY MCKEON M.D. RADIOLOGY REPORT PROCEDURE: NM CARLOS ENRIQUE PERF SPECT REST STR COMPARISON: None. INDICATIONS: CHEST PAIN, DYSPNEA, FATIGUE TECHNIQUE: Exam Description: Stress/Rest one day protocol gated SPECT Rest Imagin.1 mCi Tc-99m Cardiolite IV on 09/29/2023 Stress Imaging 31.2 mCi Tc-99m Cardiolite IV on 09/29/2023 Exercise Protocol: Tom Heart Rate (bpm): Rest: 90 Max: 155 PMHR: 91 Blood Pressure: Rest: 132/78 Max: 172/84 Exercise Time: Minutes: 5 Seconds: 59 Stage Reached: Stage: 2 Mets 7.0 Symptoms: Rest and peak stress ECG findings were normal and the exercise portion of the study was normal per attending physician Dr. Mckeon . For more details please see separate cardiac stress test report. FINDINGS: QUALITY OF STUDY: Excellent. PERFUSION DEFECT: None. LOCATION: N/A SIZE: N/A. SEVERITY: N/A. TYPE: N/A. WALL MOTION: Normal. LV SIZE: Normal. 43 mL. TID / TCD: None; 0.9 LVEF: Normal. Calculated EF 71%. SUMMARY: Myocardial perfusion imaging study is NORMAL. CONCLUSION: 1. Normal myocardial perfusion scan with no reversible ischemia 2. Normal exercise test Dictated by: Skyler Petty MD on 09/30/2023 at 12:42 Approved by: Skyler Petty MD on 09/30/2023 at 12:43
--- NOTE | 2023-09-29 07:15 | CA_ITS ---
Patient Name: KERLINE SANDERS MR#: [id number] : 1970 Exam Date: 09/29/2023 Ordering Doctor: DR BUDDY KEYS M.D. ECHOCARDIOGRAM REPORT PROCEDURE: CA ECHO DOPPLER COMPLETE INDICATIONS: Abnormal EKG, chest pain COMPARISON: None. DESCRIPTION: COMPLETE ECHOCARDIOGRAM Real-time transthoracic echocardiography with 2D, M-mode, spectral and color flow Doppler performed. QUALITY: Technical quality was good. LEFT VENTRICLE: Normal chamber size. Normal left ventricular wall thickness. LV EF: Global left ventricular systolic function is normal. Calculated left ventricular ejection fraction is 64%. No significant wall motion abnormalities. DIASTOLIC: Normal diastolic function. ATRIAL SEPTUM: Inadequately seen. LEFT ATRIUM: Normal chamber size. RIGHT ATRIUM: Normal chamber size. RIGHT VENTRICLE: Normal chamber size. Normal right ventricular systolic function. TRICUSPID VALVE: Normal mobility and thickness. No stenosis with trivial regurgitation. No evidence of pulmonary hypertension. RVSP 14mmHg MITRAL VALVE: Normal mobility and thickness. No evidence of mitral valve stenosis. There is no mitral annular calcification. Trivial mitral regurgitation. AORTIC VALVE: Normal trileaflet appearance. No visible sclerosis. Normal leaflet mobility. No evidence of aortic valve stenosis. No aortic regurgitation. AORTIC ROOT: Normal diameter and appearance. PULMONIC VALVE: Normal thickness and mobility. No stenosis. Trivial regurgitation. PERICARDIUM: No evidence of pericardial effusion. IVC: Collapses with inspirations. Normal size. CONCLUSION: 1. Global left ventricular systolic function is normal; visually estimated ejection fraction is 60 to 65% 2. Normal right ventricular size and systolic function 3. Normal diastolic function 4. The left atrium is normal in size 5. No significant valvular abnormalities Adult Echocardiography Procedure Report Left Ventricle LVEDD (3.7 - 5.6 cm): 3.87 cm LVESD (2.2 - 4.0 cm): 2.39 cm LVIVS thickness (0.6 - 1.2 cm): 0.71 cm LVPW thickness (0.5 - 1.0 cm): 0.95 cm e': 0.11 m/s E - e': 5.59 LVOT Max Gradient: 2.60 mm[Hg] LVOT Area (cm2): 0.81 m/s Peak Velocity (LVOT): 0.81 m/s Mean Velocity (LVOT): 0.54 m/s LVOT Diameter 1.66 cm Left Ventricular Ejection Fraction: 63.93 % Left Atrium LA Volume Index (2D A2C): 20.47 ml/m2 Left Atrium Systolic Dimension: 3.00 cm Mitral Valve MV E to A Ratio: 1.44 Mitral Valve A-Wave Peak Velocity: 0.42 m/s Mitral Valve E-Wave Peak Velocity: 0.61 m/s Right Ventricle RV Internal Diastolic Dimension: 2.41 cm Aorta AO Root Diam: 2.47 cm Ascending Ao Diam: 2.33 cm Aortic Valve AoV Area (Peak James): 1.61 cm2, 1.61 cm2 AoV Area (VTI): 1.73 cm2, 1.73 cm2 Peak Velocity(Antegrade Flow): 1.09 m/s Peak Gradient(Antegrade Flow): 4.73 mm[Hg] Mean Velocity(Antegrade Flow): 0.75 m/s Mean Gradient(Antegrade Flow): 2.58 mm[Hg] Velocity Time Integral: 23.30 cm Tricuspid Valve Peak Velocity (Regurgitant Flow): 1.64 m/s Pulmonic Valve Mean Gradient: 2.96 mm[Hg], 2.41 mm[Hg], 2.22 mm[Hg] Mean Velocity: 0.81 m/s, 0.73 m/s, 0.70 m/s Peak Velocity: 1.09 m/s Peak Gradient: 5.32 mm[Hg], 4.50 mm[Hg], 4.50 mm[Hg] Right Atrium Right Atrium Systolic Pressure: 20.89 ml, 20.89 ml Dictated by: Gisela Mitchell M.D. on 09/29/2023 at 11:29 Approved by: Gisela Mitchell M.D. on 09/29/2023 at 11:31
--- NOTE | 2023-09-29 09:36 | PC.NURSE ---
Nursing Note Cardiac Stress Test Reviewed: Medication, allergies and patient history reviewed. Stress Test: [ x] Patient tolerated stress test well. [ ] Patient unable to tolerate walking on treadmill. Switched to Lexiscan stress test. [ x] No chest pain noted per patient [ ] Chest pain that resolved prior to leaving stress lab. [ ] No dyspnea noted. [x ] Dyspnea that resolved prior to leaving stress lab. [ x] Patient left stress lab asymptomatic and hemodynamically stable. [ ] Patient taken to the Emergency Room due to non-resolving symptoms following stress test. [ x] Patient achieved target heart rate. [ ] Patient unable to achieve target heart rate. [ ] Aminophylline administered as reversal agent to Lexiscan (Regadenoson). [ ] Nitro administered. Nursing Comments:Pt tolerated stress test well. Pt had dyspnea that is normal for her with activity that resolved within 2 minutes of rest. Pt ambulated to cafeteria after test with tech for breakfast.
== END 2023-09-29 06:58 | disposition home or self-care (01) ==
LOC: NM 06:57
PROVIDERS: PCP Nurse Practitioner; Visit Provider Internal Medicine Interventional Cardiology
DX: R07.89 Other chest pain (principal); R06.02 Shortness of breath; R94.31 Abnormal electrocardiogram [ECG] [EKG]
CPT/HCPCS: 78452; 93017; 93306; A9500

== ENCOUNTER 2024-01-03 12:36 | Outpatient (OUT) | payer MEDICAID, SELFPAY ==
--- NOTE | 2024-01-03 12:39 | CT_ITS ---
[address] [address] Patient Name: KERLINE SANDERS MRN: [id number] date: 1970 Sex: F Assigned Patient Location: CT Current Patient Location: CT Accession/Order Number: [id number] Exam Date: 01/03/2024 12:50 Report Date: 01/08/2024 06:49 At the request of: ALEC DANGELO Procedure: CT lung screening low-dose EXAMINATION: CT lung screening low-dose HISTORY: nicotine dependence COMPARISON: CT lung screening 12/25/2022 TECHNIQUE: Axial, Coronal, and Sagittal images were created without the administration of IV contrast material. Dose reduction techniques were achieved by using automated exposure control and/or adjustment of mA and/or kV according to patient size and/or use of iterative reconstruction technique. FINDINGS: LUNGS: No visible pulmonary disease. PLEURA: No mass, effusion, or pneumothorax. VASCULATURE: No abnormality. CADY: No mass or pathologic adenopathy. MEDIASTINUM: No mass or pathologic adenopathy. CARDIAC: No enlargement, pericardial thickening, or pericardial effusion. Coronary Artery calcifications: AORTA: No aneurysm or dissection. CHEST WALL: No mass or axillary adenopathy BONES: Moderate anterior wedging of L1 vertebral body. LIMITED ABDOMEN: No suspicious findings. Limited images of the upper abdomen. OTHER: Negative. CT/CT lung screening low-dose IMPRESSION: 1. Lung-RADS Category 1 Negative. No nodules and definitely benign nodules. Continue annual screening with LDCT in 12 months. 2. Stable remote moderate compression fracture of L1. Electronically authenticated by: ORLY RAMÍREZ Date: 01/08/2024 06:49
== END 2024-01-03 12:37 | disposition home or self-care (01) ==
LOC: CT 12:36
PROVIDERS: PCP Nurse Practitioner; Visit Provider Internal Medicine
DX: F17.219 Nicotine dependence, cigarettes, with unspecified nicotine-induced disorders (principal); Z12.2 Encounter for screening for malignant neoplasm of respiratory organs; M48.56XA Collapsed vertebra, not elsewhere classified, lumbar region, initial encounter for fracture
CPT/HCPCS: 71271